=== PATIENT | male | born 1945 | race Caucasian/White ===

== ENCOUNTER → 2018-01-13 07:25 | Outpatient (CLI) | payer MEDICARE, OTHER, SELFPAY ==
[2018-01-13 09:13] LABS: Anion Gap 8 (5-15); BUN 13 mg/dL (7-18); BUN/Creat Ratio 16.2 RATIO (10-20); Calcium,Total 8.9 mg/dL (8.5-10.1); Chloride 102 mmol/L (98-107); Cholesterol 180 mg/dL (200); EST Glomerular Filtration Rate 100 mL/min (>60); Est Glom Filt Rate - Afr Amer 121 mL/min (>60); Glucose 95 mg/dL (74-106); High Density Lipoprotein 46 mg/dL; PSA,Total - Annual Screen 1.16 ng/mL (0.00-4.00); Potassium 3.7 mmol/L (3.5-5.1); Sodium Level 139 mmol/L (136-145); Triglycerides 123 mg/dL; Very Low Density Lipoprotein 25 mg/dL (5-40)
== END ==
DX: I10 Essential (primary) hypertension (principal); N40.0 Benign prostatic hyperplasia without lower urinary tract symptoms; E78.5 Hyperlipidemia, unspecified
CPT/HCPCS: 36415; 80048; 80061; 84153; G0103

== ENCOUNTER → 2019-01-25 07:13 | Outpatient (CLI) | payer MEDICARE, OTHER, SELFPAY ==
[2019-01-25 07:42] LABS: Hematocrit 42.4 % (40-54); Hemoglobin 14.6 g/dL (13.0-16.5); Mean Corp Hgb Conc 34.4 g/dL (32-36); Mean Corpuscular Hgb 31.7 pg (27.0-32.0); Mean Corpuscular Volume 92.2 fL (80-94); Platelet Count 286 K/mm3 (150-450); RBC Distribution Width CV 12.3 % (11.6-14.6); RBC Distribution Width SD 41.6 fl (35.1-43.9); White Blood Count 5.9 K/mm3 (4.4-11.0)
[2019-01-25 08:06] LABS: Anion Gap 8 (5-15); BUN 9 mg/dL (7-18); BUN/Creat Ratio 9.8 RATIO (10-20); Calcium,Total 9.1 mg/dL (8.5-10.1); Chloride 106 mmol/L (98-107); Creatinine, Serum 0.92 mg/dL (0.70-1.30); EST Glomerular Filtration Rate 85 mL/min (>60); Est Glom Filt Rate - Afr Amer 103 mL/min (>60); Glucose 98 mg/dL (74-106); PSA,Total - Annual Screen 1.54 ng/mL (0.00-4.00); Potassium 3.6 mmol/L (3.5-5.1); Sodium Level 142 mmol/L (136-145)
== END ==
DX: I10 Essential (primary) hypertension (principal); N40.1 Benign prostatic hyperplasia with lower urinary tract symptoms
CPT/HCPCS: 36415; 80048; 84153; 85027; G0103

== ENCOUNTER → 2020-01-19 08:01 | Outpatient (CLI) | payer MEDICARE, OTHER, SELFPAY ==
[2020-01-19 09:02] LABS: Anion Gap 5 (5-15); BUN 10 mg/dL (7-18); BUN/Creat Ratio 11.1 RATIO (10-20); Chloride 102 mmol/L (98-107); EST Glomerular Filtration Rate 87 mL/min (>60); Est Glom Filt Rate - Afr Amer 105 mL/min (>60); Glucose 106 mg/dL (74-106); PSA,Total- Diagnostic 2.05 ng/mL (0.0-4.0); Potassium 3.4 mmol/L (3.5-5.1); Sodium Level 136 mmol/L (136-145)
== END ==
DX: I10 Essential (primary) hypertension (principal); N40.1 Benign prostatic hyperplasia with lower urinary tract symptoms
CPT/HCPCS: 36415; 80048; 84153

== ENCOUNTER → 2021-01-31 07:55 | Outpatient (CLI) | payer MEDICARE, OTHER, SELFPAY ==
[2021-01-31 09:58] LABS: Anion Gap 7 (5-15); BUN 13 mg/dL (7-18); BUN/Creat Ratio 14.5 RATIO (10-20); Calcium,Total 9.1 mg/dL (8.5-10.1); Chloride 102 mmol/L (98-107); Cholesterol 189 mg/dL (200); Creatinine, Serum 0.89 mg/dL (0.70-1.30); EST Glomerular Filtration Rate 88 mL/min (>60); Est Glom Filt Rate - Afr Amer 106 mL/min (>60); Glucose 102 mg/dL (74-106); High Density Lipoprotein 56 mg/dL; PSA,Total - Annual Screen 1.65 ng/mL (0.00-4.00); Potassium 3.3 mmol/L (3.5-5.1); Sodium Level 137 mmol/L (136-145); Triglycerides 103 mg/dL; Very Low Density Lipoprotein 21 mg/dL (5-40)
== END ==
DX: I10 Essential (primary) hypertension (principal); N40.1 Benign prostatic hyperplasia with lower urinary tract symptoms; E78.5 Hyperlipidemia, unspecified
CPT/HCPCS: 36415; 80048; 80061; 84153; G0103

== ENCOUNTER 2021-08-28 13:23 | Emergency (ER) | payer OTHER, SELFPAY ==
[2021-08-28 13:25] VITALS: BP 149/92; PULSE 89; RESP 16; TEMP 36.7; O2SAT 95; BMI 24.3
[2021-08-28 14:47] LABS: Bacteria 0 SEEN /hpf (None Seen); Mucous, Urine 0 SEEN /hpf (<or=2+); Red Blood Cells-Urine 0 SEEN /hpf (0-5); Squamous Epithelial Cells - UA 0 SEEN /hpf (0-5); White Blood Cells 0 SEEN /hpf (0-5)
[2021-08-28 14:54] LABS: Color, Urine Yellow (Yellow); Glucose, Dipstick Normal (Normal); Ketone-Dipstick Negative (Negative); Leukocyte Esterase-Dipstick Negative /ul (Negative); Nitrite-Dipstick Negative (Negative); Occult Blood-Urine Negative /ul (Negative); Protein-Dipstick Negative (Negative); Specific Gravity, Urine 1.015 (1.002-1.030); Urine Bilirubin Dipstick Negative (Negative); Urine Clarity Clear (Clear); Urine Urobilinogen Normal (Normal)
--- NOTE | 2021-08-28 14:59 | EX.ED.DYSGE1 ---
HPI History of Present Illness Chief Complaint: Abd Pain Informant: patient Onset/Context/Timing Onset: Yesterday Context: Gradual Onset Timing: Continuous Quality: Pressure Location: Suprapubic Worsened by: Nothing Relieved by: Nothing Narrative Narrative: Patient presents with urinary retention and lower abdominal pain that has been getting worse since last evening. Patient states it is gradually gotten worse. Patient describes his pain as a pressure. Patient states it is over the suprapubic area. Patient states he was able to dribble small amounts of urine but has not been unable to completely urinate. Patient admits to some mild pain with urination. Patient denies any fevers or chills. Patient denies any nausea or vomiting. [facility] Medical History Arthritis Hemorrhoids HTN (hypertension) Incontinence Home Medications atenolol 100 mg tablet ea PO 08/28/21 [History Last Taken Unknown] felodipine 10 mg tablet,extended release 24 hr ea PO 08/28/21 [History Last Taken Unknown] hydrochlorothiazide 25 mg tablet tablet PO 08/28/21 [History Last Taken Unknown] potassium chloride 20 mEq tablet,extended release(part/cryst) ea PO 08/28/21 [History Last Taken Unknown] Allergy/AdvReac Type Severity Reaction Status Date / Time lisinopril Allergy unknown Verified 08/28/21 13:25 losartan Allergy unknown Verified 08/28/21 13:25 Surgical History History of partial knee replacement Social History Smoking Status: Never smoker alcohol intake: current alcohol intake frequency: 0-2 drinks per day Alcohol type: beer ROS ROS ED Constitutional Constitutional ED: Denies chills or fever(s) Eyes Eyes: Denies blurry vision or change in vision ENT ENT ED: Denies rhinorrhea or sore throat Cardiovascular Cardiovascular: Denies chest pain or palpitations Respiratory/Chest Respiratory/Chest: Denies cough or dyspnea Gastrointestinal Gastrointestinal: Denies nausea or vomiting Genitourinary Genitourinary ED: Reports dysuria; Denies hematuria Musculoskeletal Musculoskeletal: Denies back pain or neck pain Integumentary Denies abscess or rash Neurologic Neurologic: Denies headache(s) or weakness Allergic/Immunologic Allergic/Immunologic ED: Denies mouth swelling or urticaria EXAM Physical Exam Const Vital Signs: 08/28/21 13:25 Temperature 98.1 F Temperature Source Temporal Pulse Rate 89 Respiratory Rate 16 Blood Pressure 149/92 H Blood Pressure Mean 111 Pulse Ox 95 Oxygen Delivery Method Room Air Positive well nourished and well developed General Appearance ED: well developed and NAD HEENT Reports moist mucous membranes Neck supple and no JVD Resp normal respiratory effort and clear to auscultation bilaterally Cardio regular rate and regular rhythm GI normal to inspection, nondistended, normoactive bowel sounds and non-tender Palpation: soft Neuro oriented x3, CN's II-XII intact bilaterally and no sensory deficits noted Sensorium / Orientation: alert Motor Exam: strength 5/5 throughout Psych mental status grossly normal MDM MDM MDM Narrative Medical decision making narrative: Lemus catheter was placed. There was over 1600 cc of urine returned. Patient feels better after this. Urinalysis does not show any evidence of urinary tract infection or hematuria. Patient was given a leg bag. Patient was given referral for follow-up care in 3 to 5 days. Patient was also given a referral for urology. Patient was instructed return if worse in any way. Patient understood and was agreeable with the plan. All questions were answered. Lab Data Attestation: I reviewed the patient's lab results. Labs: Laboratory Results - last 24 hr 08/28/21 14:35 Urine Color Yellow Urine Clarity Clear Urine pH 7.0 Ur Specific [place] 1.015 Urine Protein Negative Urine Glucose (UA) Normal Urine Ketones Negative Urine Occult Blood Negative Urine Nitrite Negative Urine Bilirubin Negative Urine Urobilinogen Normal Ur Leukocyte Esterase Negative Discharge Plan Triage Chief Complaint: Abd Pain ED Provider: Florentino Rodriguez Dx/Rx/DC Orders Clinical Impression: Acute urinary retention, HTN (hypertension) Instructions: ED Lemus Catheter, Care, ED Urinary Retention, Male Prescriptions: No Action atenolol 100 mg tablet PO RF: 0 felodipine 10 mg tablet extended release 24 hr PO RF: 0 hydrochlorothiazide 25 mg tablet PO RF: 0 potassium chloride 20 mEq tablet,ER particles/crystals PO RF: 0 [facility] Referrals: Florentino Celeste MD [STAFF PHYSICIAN] - 3-5 Days [facility] [Primary Care Provider] - Disposition Disposition: Home, Self Care
[2021-08-28 16:01] VITALS: PULSE 87; RESP 17; O2SAT 98
== END 2021-08-28 16:02 | disposition home or self-care (01) ==
PROVIDERS: Emergency Provider Emergency Medicine; Visit Provider Emergency Medicine
DX: R33.9 Retention of urine, unspecified (principal); R10.30 Lower abdominal pain, unspecified; R30.0 Dysuria; I10 Essential (primary) hypertension; M19.90 Unspecified osteoarthritis, unspecified site; Z79.899 Other long term (current) drug therapy
CPT/HCPCS: 51702; 81001; 99284; A4216

== ENCOUNTER 2021-08-28 15:24 | Outpatient (CLI) | payer OTHER, SELFPAY | END 2021-08-28 23:59 | disposition home or self-care (01) | LOC: LABSPEC 15:25 | PROVIDERS: Referring Provider Physician Assistant Surgical; Visit Provider Physician Assistant Surgical | DX: R30.9 Painful micturition, unspecified (principal) | CPT/HCPCS: 87086 ==

== ENCOUNTER 2021-09-09 04:14 | Emergency (ER) | payer OTHER, SELFPAY ==
[2021-09-09 04:15] VITALS: PULSE 96; RESP 18; TEMP 36.6; O2SAT 97; BMI 24.6
--- NOTE | 2021-09-09 04:26 | EDS_ITS ---
HPI History of Present Illness Chief Complaint: Complaint Detail of Chief Complaint: Urinary retention Informant: patient Pain Onset: Today Context: Gradual Onset Timing: Continuous Current Severity: Severe Maximum Severity: Severe Narrative Narrative: Patient presenting with acute urinary retention. He had this about a week ago, had a catheter placed, saw urology yesterday, did a scope in the office he was diagnosed with an enlarged prostate and is scheduled for a prostatectomy September 25, catheter was removed after he was on medications for a week, he was able to urinate after this in the office, so he was discharged home without it. He woke up in the middle of the night, he can only urinate a very little bit, no hematuria, but he feels the growing need to urinate and is unable to. No back pain, nausea, vomiting, fevers. PFSH PFSH Medical History Arthritis Hemorrhoids HTN (hypertension) Incontinence Home Medications atenolol 100 mg tablet ea PO 08/28/21 [History Last Taken Unknown] felodipine 10 mg tablet,extended release 24 hr ea PO 08/28/21 [History Last Taken Unknown] hydrochlorothiazide 25 mg tablet tablet PO 08/28/21 [History Last Taken Unknown] potassium chloride 20 mEq tablet,extended release(part/cryst) ea PO 08/28/21 [History Last Taken Unknown] Allergy/AdvReac Type Severity Reaction Status Date / Time lisinopril Allergy unknown Verified 08/28/21 13:25 losartan Allergy unknown Verified 08/28/21 13:25 Surgical History History of partial knee replacement Social History Smoking Status: Never smoker alcohol intake: current alcohol intake frequency: 0-2 drinks per day Alcohol type: beer ROS ROS ED Constitutional Constitutional ED: Denies chills or fever(s) Eyes Eyes: Denies change in vision or diplopia ENT ENT ED: Denies rhinorrhea or sore throat Cardiovascular Cardiovascular: Denies chest pain or palpitations Respiratory/Chest Respiratory/Chest: Denies cough or dyspnea Gastrointestinal Gastrointestinal: Reports as per HPI and abdominal pain; Denies diarrhea, nausea or vomiting Genitourinary Genitourinary ED: Reports difficulty urinating; Denies dysuria or hematuria Musculoskeletal Musculoskeletal: Denies back pain or neck pain Integumentary Denies abscess or rash Neurologic Neurologic: Denies headache(s), paresthesias or weakness Psychiatric Psychiatric: Denies anxiety or suicidal thoughts EXAM Physical Exam Const Vital Signs: 09/09/21 04:15 Temperature 97.9 F Temperature Source Temporal Pulse Rate 96 Respiratory Rate 18 Pulse Ox 97 Positive well nourished and well developed General Appearance ED: well developed and NAD HEENT Reports moist mucous membranes normocephalic and atraumatic Eyes PERRL and EOMs intact bilaterally Neck full ROM and supple Resp normal respiratory effort and clear to auscultation bilaterally Cardio regular rate, regular rhythm and no murmurs GI GI Narrative: Suprapubic distention and tenderness Auscultation: normoactive bowel sounds Palpation: soft Back/Spine no CVA tenderness General Back: other FROM Extremity normal to inspection General Extremety ED: Negative for edema, pulses abnormal or tenderness General Extremity: Negative for edema or pulses abnormal Neuro oriented x3, CN's II-XII intact bilaterally and no sensory deficits noted Sensorium / Orientation: awake and alert Motor Exam: strength 5/5 throughout Skin no rashes or lesions noted and no wounds MDM MDM MDM Narrative Medical decision making narrative: Nursing placed a Lemus catheter, he emptied over 1.5 liters of yellow nonbloody transparent urine and he felt much better. Discharged with a leg bag and advised to continue his prescribed medications and follow-up with urology he is comfortable with that plan. Discharge Plan Triage Chief Complaint: Complaint ED Provider: Theron Kim Dx/Rx/DC Orders Clinical Impression: Acute urinary retention, Enlarged prostate Instructions: ED Lemus Catheter, Care, ED Urinary Retention, Male Prescriptions: No Action atenolol 100 mg tablet PO RF: 0 felodipine 10 mg tablet extended release 24 hr PO RF: 0 hydrochlorothiazide 25 mg tablet PO RF: 0 potassium chloride 20 mEq tablet,ER particles/crystals PO RF: 0 Primary Care Provider: [facility],[place] Referrals: Marvin Ribera MD [STAFF PHYSICIAN] - (Call for appointment/follow-up information) [facility],[place] [Primary Care Provider] - Disposition Disposition: Home, Self Care
[2021-09-09 04:58] VITALS: BP 128/83; PULSE 77; RESP 15; O2SAT 96
== END 2021-09-09 05:10 | disposition home or self-care (01) ==
LOC: ED 04:40
PROVIDERS: Emergency Provider Emergency Medicine; Visit Provider Emergency Medicine
DX: N40.1 Benign prostatic hyperplasia with lower urinary tract symptoms (principal); R33.8 Other retention of urine; I10 Essential (primary) hypertension; M19.90 Unspecified osteoarthritis, unspecified site; Z79.899 Other long term (current) drug therapy
CPT/HCPCS: 51702; 99283

== ENCOUNTER 2021-09-25 07:33 | Observation (INO) | payer MEDICARE, OTHER, SELFPAY ==
--- NOTE | 2021-09-23 13:51 | EKG12_ITS ---
Test Reason : PREOP Blood Pressure : / mmHG Vent. Rate : 068 BPM Atrial Rate : 068 BPM P-R Int : 212 ms QRS Dur : 092 ms QT Int : 416 ms P-R-T Axes : 038 -02 003 degrees QTc Int : 442 ms Sinus rhythm with sinus arrhythmia with 1st degree A-V block Otherwise normal ECG Confirmed by SHWETHA RODRIGUEZ, DIANA ([id number]), news videotape editor ELTON MORRIS ([id number]) on 09/24/2021 8:43:12 AM Referred By: Marvin Ribera Confirmed By:DIANA TADEO MD
[2021-09-23 14:59] LABS: Hematocrit 39.7 % (40-54); Mean Corp Hgb Conc 32.7 g/dL (32-36); Mean Corpuscular Hgb 31.2 pg (27.0-32.0); Mean Corpuscular Volume 95.2 fL (80-94); Mean Platelet Vol. 9.4 fl (6.2-12.0); Platelet Count 298 K/mm3 (150-450); RBC Distribution Width CV 12.1 % (11.6-14.6); RBC Distribution Width SD 42.3 fl (35.1-43.9); Red Blood Count 4.17 M/mm3 (4.6-6.2); White Blood Count 5.8 K/mm3 (4.4-11.0)
[2021-09-23 15:08] LABS: Prothrombin Time (Protime)PT. 13.2 SECONDS (11.7-14.9)
[2021-09-23 15:24] LABS: AST(SGOT) 14 U/L (15-37); Alanine Aminotransfer ALT/SGPT 22 U/L (16-61); Albumin, Serum 3.7 g/dL (3.2-5.0); Alkaline Phosphatase 79 U/L (45-117); Anion Gap 8 (5-15); BUN 20 mg/dL (7-18); BUN/Creat Ratio 20.3 RATIO (10-20); Bilirubin, Direct 0.17 mg/dL (0.00-0.30); Calcium,Total 9.3 mg/dL (8.5-10.1); Chloride 101 mmol/L (98-107); Creatinine, Serum 0.98 mg/dL (0.70-1.30); EST Glomerular Filtration Rate 78 mL/min (>60); Est Glom Filt Rate - Afr Amer 95 mL/min (>60); Globulin 3.7 g/dL (2.2-4.2); Glucose 114 mg/dL (74-106); Potassium 3.4 mmol/L (3.5-5.1); Protein, Total 7.4 g/dL (6.4-8.2); Sodium Level 136 mmol/L (136-145)
[2021-09-25] VITALS (15 sets, daily range): BP systolic 72–128; BP diastolic 48–78; PULSE 53–69; RESP 14–20; TEMP 35.6–36.7; O2SAT 88–100; BMI 24.5; BMI 28.1
--- NOTE | 2021-09-25 | PROS_PTH ---
PATIENT: HONG ANDERS LOC: [facility] U#:[id number] AGE/SX: 76/M ROOM: OH315 RE09/25/[address]: Dr. Marvin Ribera MD : 1945 BED: 1 DIS: 09/26/2021 SPEC #: [id number] RECD: 09/25/21 13:19 STATUS: LONNY BOTELLO #: [id number] DEEJAY: 09/25/21 00:[address]: Marvin Ribera DEPT: SURGICAL PATHOLOGY RECD BY: Juan Carlos Bishop ENTERED: 09/28/21 08:16 SP TYPE: TURP OT DR: [facility] Tissues: Prostate, NOS Procedures: Surgery Specimen Level IV HEADER OPERATION: Cystoscopy, transurethral resection of prostate PRE-OP DIAGNOSIS: BPH TISSUE SUBMITTED: Prostate tissue MICROSCOPIC DIAGNOSIS Prostate tissue, transurethral resection: Benign prostatic hyperplasia, glandular and stromal type. Focal chronic inflammation. SJ:carlee 09/29/2021 MICROSCOPIC DESCRIPTION Slides are reviewed. GROSS DESCRIPTION Received is one container labeled with the patient's name and designated prostate tissue. The specimen consists of multiple irregular fragments of pink-valentine, rubbery, soft tissue that in aggregate weigh 35.9 gm and measure in aggregate 8 x 8 x 3 cm. Multiple Wire Sawyer tissue is submitted in ten cassettes. / SJ:carlee 09/28/2021 TC:5 CPT: 57494
[2021-09-25] MEDS: Lactated Ringers 1,000 ML 15 ML IV (06:27)
[2021-09-25] MEDS: Cefazolin 2 GM in 0.9% Normal Saline 100 ML IV (07:24)
--- NOTE | 2021-09-25 07:35 | PCM.HP.STD ---
HPI - General HPI Narrative HONG ANDERS, is a 76 M who presents for a Turp for retention of urine. [facility] Medical History (Updated 09/18/21 @ 11:23 by Kristal Menjivar) Alcohol use Arthritis Easy bruising Enlarged prostate Hemorrhoids History of IBS History of stress test HTN (hypertension) Incontinence Leg cramps Non-smoker Wears glasses Wears hearing aid in both ears Wears partial dentures Home Medications atenolol 100 mg tablet 100 mg PO DAILY 08/28/21 [History Last Taken 09/25/21 06:00] felodipine 10 mg tablet,extended release 24 hr 10 mg PO DAILY 08/28/21 [History Last Taken 09/25/21 06:00] hydrochlorothiazide 25 mg tablet 25 mg PO DAILY 08/28/21 [History Last Taken Unknown] potassium chloride 20 mEq tablet,extended release(part/cryst) 20 meq PO TID 08/28/21 [History Last Taken Unknown] turmeric 400 mg PO QODAY 09/18/21 [History Last Taken Unknown] ciprofloxacin HCl [Cipro] 500 mg PO BID #10 tab 09/25/21 [Rx Last Taken Unknown] Allergy/AdvReac Type Severity Reaction Status Date / Time lisinopril Allergy unknown Verified 09/25/21 06:16 losartan Allergy unknown Verified 09/25/21 06:16 Family History (Updated 09/17/21 @ 15:24 by Saira Taylor) Mother Arthritis Hypertension Father Stomach cancer Brother Heart disease Surgical History (Updated 09/18/21 @ 11:14 by Kristal Menjivar) History of partial knee replacement History of tonsillectomy and adenoidectomy Hx of bilateral cataract extraction Social History (Updated 09/17/21 @ 15:25 by Saira Taylor) Smoking Status: Never smoker alcohol intake: current alcohol intake frequency: 0-2 drinks per day Alcohol type: beer substance use type: does not use what type of physical activity do you participate in: walking frequency: 3-4 times per week duration: 15-30 minutes/day Vital Signs Vital Signs Vital Signs: 09/25/21 06:12 Temperature 97.8 F Temperature Source Temporal Pulse Rate 61 Respiratory Rate 16 Respiratory Pattern Normal Blood Pressure 112/74 Blood Pressure Mean 86 Blood Pressure Source Monitor Blood Pressure Position Semi-Fowlers Blood Pressure Location Left Arm Pulse Ox 97 Oxygen Delivery Method Room Air Weight Weight: 75.3 kg Body Mass Index (BMI) 24.5 Results Lab / Micro Data Result Diagrams: 09/23/21 14:01 09/23/21 14:01
[2021-09-25] MEDS: Lubricating Jelly 60 GM Tube 30 GM (07:45)
--- NOTE | 2021-09-25 09:16 | DCINST_ITS ---
Discharge Instructions Diet Discharge Diet: No restrictions Activity Discharge Activity: Return to Normal Activity and May Not Drive (while taking narcotic pain medications.) Dressing / Incision Call your doctor if you observe: Fever of 101 or Higher Follow Up Care Please Follow Up With: Marvin Ribera MD When: Call [phone] for an appointment Test Results: Test results from this visit will be discussed in further detail at your follow-up appointment, if applicable. Discharge Plan Admission Primary Reason for Your Visit: TURP Attending Provider: Marvin Ribera Primary Care Provider: [facility],[place] Instructions Patient Instructions: TUR Home Recovery Discharge Orders/Prescriptions Prescriptions: New ciprofloxacin HCl [Cipro] 500 mg tablet 500 mg PO BID Qty: 10 RF: 0 Continued atenolol 100 mg tablet 100 mg PO DAILY RF: 0 felodipine 10 mg tablet extended release 24 hr 10 mg PO DAILY RF: 0 hydrochlorothiazide 25 mg tablet 25 mg PO DAILY RF: 0 potassium chloride 20 mEq tablet,ER particles/crystals 20 meq PO TID RF: 0 turmeric 400 mg Capsule 400 mg PO QODAY RF: 0 Discontinued tamsulosin 0.4 mg capsule 0.4 mg PO DAILY RF: 0 dutasteride 0.5 mg capsule 0.5 mg PO DAILY RF: 0 Referrals / Follow Up: Marvin Ribera MD [STAFF PHYSICIAN] - [facility],[place] [Primary Care Provider] - Disposition Disposition (needs filled in before D/C Order can be placed): Home, Self Care
--- NOTE | 2021-09-25 09:17 | OP.PCM_ITS ---
Report of Operation Date of Procedure: 09/25/21 Pre-Operative Diagnosis: bph with retention of urine Post-Operative Diagnosis: same Surgery/Procedure Performed:: TURP Description of Surgical Findings:: In the preoperative setting I discussed with the patient how the surgery would be done with expect afterwards. We discussed how a prostate resection is done and we discussed the risk of the surgery including, bleeding, infection, retrograde ejaculation, changes with ejaculation or intercourse,. We discussed the possibility that the resection of the prostate may not alleviate his urinary symptoms. We discussed the small risk of developing scar tissue along the urethral channel and strictures. We also discussed the chance of the prostate could grow back and he may need further surgery or treatment in the future for prostate problems. Patient was taken back to the operating room, timeout procedure was performed, he was identified and marked and placed on the operating room table. He underwent general anesthesia. He was placed in dorsolithotomy position. Penis and testicles were prepped and draped in usual sterile fashion. Went into the bladder using the visual obturator with a resectoscope. Once inside the bladder identified the right and left ureteral orifice. I then identified the prostate and the anatomy of the prostate. I marked out the area of the sphincter and the verumontanum was identified. I then proceeded with the prostate resection first resected the median lobe. And then resected the right lobe of the prostate. Then to resect the left lobe of the prostate. I then resected the apical tissue of the prostate. This was a complete resection of all obstructive tissue to improve voiding and relieve obstruction. I then made sure that there was no injury to the sphincter or the verumontanum was still intact. At the end of the resection all the chips were Ellik out of the bladder. I then identified the left and right ureteral orifice and these were confirmed to be in good position and effluxing and not injured. The resectoscope was removed, a 22 [place] catheter was placed into the bladder on continuous irrigation. And the urine was fairly light pink color and draining normally. He was taken back to the PACU in good condition. CPT 20738 Surgeon: parker Type of Anesthesia: General Admit VTE Documentation VTE Present on Admission: No VTE Mechan Device Prophylaxis: SCD's VTE Pharm Prophylaxis ordered?: No
[2021-09-25] MEDS: Ciprofloxacin 500 MG Tablet PO ×2 (12:33→21:30)
[2021-09-25] MEDS: hydroCHLOROthiazide 25 MG Tablet PO (12:34)
[2021-09-25] MEDS: Ibuprofen 600 MG Tablet PO (12:34)
[2021-09-25] MEDS: Potassium Chloride Oral Tablet 20 MEQ PO ×2 (12:35→18:28)
--- NOTE | 2021-09-25 12:39 | NURSING ---
Pt felt urge to have a BM, this pt irrigated bladder and obtained 1 mod sized drk red clot. About 10 min ago and now pt states he feels much better. Pt is eating lunch.
--- NOTE | 2021-09-25 15:30 | NURSING ---
Dangled on the edge of bed for several minutes. Then assisted to bathroom. Pt had a small BM. Then assisted into chair. Sitting up in chair at this time.
--- NOTE | 2021-09-25 18:46 | NURSING ---
Continued to sit in chair, watching TV. Denies needs. CBI running slow and maintained.
[2021-09-26 03:59] VITALS: BP 96/51; PULSE 60; RESP 16; TEMP 36.9; O2SAT 97
[2021-09-26 08:16] VITALS: BP 131/82; PULSE 71; RESP 18; TEMP 36.6; O2SAT 98
[2021-09-26] MEDS: Potassium Chloride Oral Tablet 20 MEQ PO ×2 (09:36→13:10)
[2021-09-26] MEDS: Ciprofloxacin 500 MG Tablet PO (09:36)
[2021-09-26] MEDS: Atenolol 100 MG Tablet PO (09:37)
[2021-09-26] MEDS: hydroCHLOROthiazide 25 MG Tablet PO (09:37)
[2021-09-26] MEDS: amLODIPine 10 MG Tablet PO (09:37)
[2021-09-26 13:12] VITALS: BP 124/79; PULSE 56; RESP 16; TEMP 36.5; O2SAT 98
--- NOTE | 2021-09-26 13:20 | CASEMGMT ---
MARY PALACIOS in to complete CONRAD form. MARY PALACIOS explained CONRAD form to patient, patient voiced understanding. Patient signed CONRAD form and filed in chart. Patient provided copy of signed CONRAD form. Patient had no further questions or concerns at this time
[2021-09-26 15:37] VITALS: BP 124/79; PULSE 56; RESP 16; TEMP 36.5; O2SAT 98
== END 2021-09-26 16:32 | disposition home or self-care (01) ==
LOC: SDC 09:54 → MS3 09:54
PROVIDERS: Anesthesiology; Admitting Provider Urology; Referring Provider Urology; Visit Provider Urology
PROC: (CPT 52601; principal; 2021-09-25 07:20)
DX: N40.1 Benign prostatic hyperplasia with lower urinary tract symptoms (principal); R33.9 Retention of urine, unspecified; I10 Essential (primary) hypertension; M19.90 Unspecified osteoarthritis, unspecified site; Z79.899 Other long term (current) drug therapy; R32 Unspecified urinary incontinence; Z87.19 Personal history of other diseases of the digestive system; I44.0 Atrioventricular block, first degree; R30.0 Dysuria; Z86.2 Personal history of diseases of the blood and blood-forming organs and certain disorders involving the immune mechanism
CPT/HCPCS: 52601; 00914; 36415; 80048; 80076; 85027; 85610; 85730; 88305; 93005; 99218; J7120; G0378; J2405

== ENCOUNTER 2021-10-06 16:31 | Outpatient (CLI) | payer MEDICARE, OTHER, SELFPAY | END 2021-10-06 23:59 | disposition home or self-care (01) | LOC: LABSPEC 16:32 | PROVIDERS: Referring Provider Urology; Visit Provider Urology | DX: R31.9 Hematuria, unspecified (principal) | CPT/HCPCS: 87077; 87086; 87088; 87186 ==

== ENCOUNTER → 2022-08-09 | Outpatient (CLI) | payer MEDICARE, OTHER, SELFPAY | END | disposition home or self-care (01) | LOC: LAB 16:51 | PROVIDERS: Referring Provider Urology; Visit Provider Urology | DX: R33.8 Other retention of urine (principal) | CPT/HCPCS: 87086; 87088; 87186 ==

== ENCOUNTER → 2022-09-01 | Outpatient (CLI) | payer MEDICARE, OTHER, SELFPAY | END | disposition home or self-care (01) | LOC: LABSPEC 10:27 | PROVIDERS: Visit Provider Urology | DX: R31.9 Hematuria, unspecified (principal) | CPT/HCPCS: 87077; 87086; 87088; 87186 ==

== ENCOUNTER → 2022-10-05 | Outpatient (CLI) | payer MEDICARE, OTHER, SELFPAY ==
[2022-10-05 11:17] LABS: Absolute Lymphocyte Count 1.66 X10^3/uL (0.83-4.51); Absolute Neutrophil Count 3.2 X10^3/uL (2.0-7.7); Basophil# 0.08 X10^3/uL; Basophil% 1.3 % (0-1); Eosinophil# 0.29 X10^3/uL; Eosinophils% 4.8 % (0-5); Hematocrit 44.1 % (40-54); Hemoglobin 15.1 g/dL (13.0-16.5); Lymphocyte # 1.66 X10^3/ul (0.83-4.51); Lymphocyte % 27.6 % (19-41); Mean Corp Hgb Conc 34.2 g/dL (32-36); Mean Corpuscular Hgb 31.6 pg (27.0-32.0); Mean Corpuscular Volume 92.3 fL (80-94); Mean Platelet Vol. 9.3 fl (6.2-12.0); Monocyte# 0.78 X10^3/uL; NRBC Flagged by Analyzer 0 % (0-5); Neutrophil % 53.1 % (47-70); Platelet Count 297 K/mm3 (150-450); RBC Distribution Width CV 12.5 % (11.6-14.6); RBC Distribution Width SD 42.5 fl (35.1-43.9); Red Blood Count 4.78 M/mm3 (4.6-6.2)
[2022-10-05 11:41] LABS: Vitamin D,25 Hydroxy 36.8 ng/mL
[2022-10-05 12:54] LABS: AST(SGOT) 16 U/L (15-37); Alanine Aminotransfer ALT/SGPT 25 U/L (16-61); Albumin, Serum 3.8 g/dL (3.2-5.0); Alkaline Phosphatase 103 U/L (45-117); Anion Gap 6 (5-15); BUN 13 mg/dL (7-18); BUN/Creat Ratio 16.3 RATIO (10-20); Calcium,Total 9.2 mg/dL (8.5-10.1); Chloride 106 mmol/L (98-107); Cholesterol 165 mg/dL (200); EST Glomerular Filtration Rate 100 mL/min (>60); Est Glom Filt Rate - Afr Amer 121 mL/min (>60); Globulin 3.9 g/dL (2.2-4.2); Glucose 87 mg/dL (74-106); High Density Lipoprotein 59 mg/dL; Magnesium 2.5 mg/dL (1.6-2.6); PSA,Total - Annual Screen 0.91 ng/mL (0.00-4.00); Potassium 3.9 mmol/L (3.5-5.1); Protein, Total 7.7 g/dL (6.4-8.2); Sodium Level 137 mmol/L (136-145); Thyroid Stim Hormone (TSH) 1.25 uIU/mL (0.358-3.74); Triglycerides 68 mg/dL; Very Low Density Lipoprotein 14 mg/dL (5-40)
[2022-10-05 20:22] LABS: Hemoglobin A1c 5.7 % (3.8-5.6)
== END | disposition home or self-care (01) ==
LOC: LAB 09:58
PROVIDERS: Referring Provider Internal Medicine; Visit Provider Internal Medicine
DX: M19.90 Unspecified osteoarthritis, unspecified site (principal); I10 Essential (primary) hypertension; R32 Unspecified urinary incontinence; R73.9 Hyperglycemia, unspecified; Z13.220 Encounter for screening for lipoid disorders; E55.9 Vitamin D deficiency, unspecified; Z12.5 Encounter for screening for malignant neoplasm of prostate
CPT/HCPCS: 36415; 80053; 80061; 82306; 83036; 83735; 84153; 84443; 85025; G0103

== ENCOUNTER 2022-12-16 08:39 | Emergency (ER) | payer OTHER, SELFPAY ==
[2022-12-16 08:40] VITALS: BP 128/94; PULSE 70; RESP 16; TEMP 36.4; O2SAT 98; BMI 24.0
--- NOTE | 2022-12-16 09:01 | EDS_ITS ---
HPI History of Present Illness Chief Complaint: GI Bleed Detail of Chief Complaint: Bright red blood per rectum Informant: patient Onset/Context/Timing Onset: Today and Yesterday Context: Sudden Onset Timing: Intermittent Quality: Blood with bowel movement and noted small amount of blood lysate on underwe Current Severity: Moderate Maximum Severity: Moderate Worsened by: Bowel movement Relieved by: Not applicable Associated Symptoms Associated Symptoms: None Narrative Narrative: Patient is a 77-year-old male presents with bright red blood per rectum yesterday x1 and x2 today. He is noted with bowel movement and noted blood in his underwear after bowel movement. He denies orthostatic symptoms. He is not on an anticoagulant. He denies cardiac or respiratory symptoms. He has a remote history of hemorrhoids. He had a polypectomy performed by Dr. Ariel Horn 1 year ago. Prior similar symptoms: Yes (Hemorrhoids) Recent Illness/Hospitalization: [facility] Medical History Alcohol use Arthritis Easy bruising Enlarged prostate Hemorrhoids History of IBS History of stress test HTN (hypertension) Incontinence Leg cramps Non-smoker Wears glasses Wears hearing aid in both ears Wears partial dentures Home Medications atenolol 100 mg tablet 100 mg PO DAILY #90 tabs 10/18/22 [Rx Last Taken Unknown] felodipine 10 mg tablet,extended release 24 hr 10 mg PO DAILY #90 tabs 10/18/22 [Rx Last Taken Unknown] potassium chloride 20 mEq tablet,extended release(part/cryst) 20 meq PO BID #180 tabs 10/18/22 [Rx Last Taken Unknown] Allergy/AdvReac Type Severity Reaction Status Date / Time lisinopril Allergy unknown Verified 12/16/22 08:40 losartan Allergy unknown Verified 12/16/22 08:40 Family History Mother Arthritis Hypertension Father Stomach cancer Brother Heart disease Surgical History History of partial knee replacement History of tonsillectomy and adenoidectomy History of transurethral resection of prostate Hx of bilateral cataract extraction Social History Smoking Status: Never smoker alcohol intake: current alcohol intake frequency: 0-2 drinks per day Alcohol type: beer substance use type: does not use what type of physical activity do you participate in: walking frequency: 3-4 times per week duration: 15-30 minutes/day ROS ROS ED Constitutional Constitutional ED: Denies chills, fever(s), subjective, sweats or weight loss Cardiovascular Cardiovascular: Denies chest pain or palpitations Respiratory/Chest Respiratory/Chest: Denies dyspnea or dyspnea on exertion Gastrointestinal Gastrointestinal: Reports other Details: Hematochezia ; Denies abdominal pain, constipation, diarrhea, melena, nausea or vomiting Genitourinary Genitourinary ED: Denies hematuria or urinary frequency Hematologic/Lymphatic Hematologic/Lymphatic: Reports systems reviewed and no addt'l complaints, except as documented EXAM Physical Exam Const Vital Signs: 12/16/22 08:40 Temperature 97.5 F L Temperature Source Temporal Pulse Rate 70 Respiratory Rate 16 Blood Pressure 128/94 H Blood Pressure Mean 105 Pulse Ox 98 Positive well nourished and well developed General Appearance ED: well developed and NAD; Negative for pallor HEENT Reports moist mucous membranes HEENT Narrative: Head is atraumatic normocephalic. Ears normal. Eyes PERRL and EOMs intact bilaterally General Eye ED: Negative for pale conjunctiva or scleral icterus Neck no lymphadenopathy, supple and no JVD Resp normal respiratory effort and clear to auscultation bilaterally Cardio regular rate, S2 normal heart sound and no murmurs GI normal to inspection, nondistended, normoactive bowel sounds, non-tender, non-distended and no masses; Negative for hepatosplenomegaly GI Narrative: And has brown stool. There is no obvious bright red blood noted at this time. Rectal Exam: normal sphincter tone and prostate normal Back/Spine no CVA tenderness Extremity normal to inspection Neuro oriented x3 and CN's II-XII intact bilaterally Sensorium / Orientation: alert Psych Mood & Affect: anxious Skin no rashes or lesions noted and no wounds General Skin Exam: Negative for jaundice or pallor MDM MDM MDM Narrative Medical decision making narrative: SPECT patient has hemorrhoidal bleeding. We will perform a anoscopy. Based on endoscopy findings patient had bright red blood per rectum due to hemorrhoids noted at 5:00 lithotomy position. Patient was informed of findings and discharged home with appropriate home-going instructions Procedures Other Procedures Procedure(s): Patient was in left lateral decubitus position. Evidence of prior hemorrhoids noted. Digital exam was unremarkable and documented under the GI section of the EMR. Anoscopy was performed. Stool is noted to be brown. There is no blood noted above the scope. At 5:00 there is a hemorrhoid which recently bled. There is a clot noted. There is no active bleeding. The anal/rectal mucosa appears normal. Discharge Plan Triage Chief Complaint: GI Bleed ED Provider: Bigg Johnson Dx/Rx/DC Orders Clinical Impression: Bleeding external hemorrhoids Instructions: ED Hemorrhoids Prescriptions: No Action atenolol 100 mg tablet 100 mg PO DAILY Qty: 90 3RF felodipine 10 mg tablet extended release 24 hr 10 mg PO DAILY Qty: 90 3RF potassium chloride 20 mEq tablet,ER particles/crystals 20 meq PO BID Qty: 180 3RF [facility] [facility] [facility] [Primary [facility] Provider] - As Needed Disposition Disposition: Home, Self Care
== END 2022-12-16 09:40 | disposition home or self-care (01) ==
PROVIDERS: Emergency Provider Emergency Medicine; Visit Provider Emergency Medicine
DX: K64.9 Unspecified hemorrhoids (principal); I10 Essential (primary) hypertension; Z79.899 Other long term (current) drug therapy
CPT/HCPCS: 46600; 99282

== ENCOUNTER → 2023-10-24 | Outpatient (CLI) | payer MEDICARE, OTHER, SELFPAY ==
[2023-10-24 10:08] LABS: Absolute Lymphocyte Count 1.46 X10^3/uL (0.83-4.51); Absolute Neutrophil Count 3.7 X10^3/uL (2.0-7.7); Basophil# 0.07 X10^3/uL; Basophil% 1.1 % (0-1); Eosinophil# 0.24 X10^3/uL; Eosinophils% 3.9 % (0-5); Lymphocyte # 1.46 X10^3/ul (0.83-4.51); Lymphocyte % 23.8 % (19-41); Mean Corp Hgb Conc 33.3 g/dL (32-36); Mean Corpuscular Hgb 31.2 pg (27.0-32.0); Mean Corpuscular Volume 93.6 fL (80-94); Mean Platelet Vol. 9.3 fl (6.2-12.0); Monocyte# 0.65 X10^3/uL; Monocyte% 10.6 % (0-10); NRBC Flagged by Analyzer 0 % (0-5); Neutrophil % 60.3 % (47-70); Platelet Count 299 K/mm3 (150-450); RBC Distribution Width SD 42.1 fl (35.1-43.9); Red Blood Count 4.81 M/mm3 (4.6-6.2); White Blood Count 6.1 K/mm3 (4.4-11.0)
[2023-10-24 10:28] LABS: Hemoglobin A1c 5.5 % (3.8-5.6)
[2023-10-24 10:34] LABS: Vitamin D,25 Hydroxy 22.6 ng/mL
[2023-10-24 10:42] LABS: ALB/GLOB Ratio 1.1 RATIO (0.9-2.4); AST(SGOT) 20 U/L (15-37); Alanine Aminotransfer ALT/SGPT 22 U/L (16-61); Albumin, Serum 4.1 g/dL (3.2-5.0); Alkaline Phosphatase 108 U/L (45-117); Anion Gap 4 (5-15); BUN 14 mg/dL (7-18); BUN/Creat Ratio 16.5 RATIO (10-20); Calcium,Total 9.3 mg/dL (8.5-10.1); Chloride 107 mmol/L (98-107); Cholesterol 165 mg/dL (200); Creatinine, Serum 0.85 mg/dL (0.70-1.30); EST Glomerular Filtration Rate 93 mL/min (>60); Est Glom Filt Rate - Afr Amer 112 mL/min (>60); Globulin 3.8 g/dL (2.2-4.2); Glucose 102 mg/dL (74-106); High Density Lipoprotein 58 mg/dL; PSA,Total - Annual Screen 1.28 ng/mL (0.00-4.00); Potassium 3.6 mmol/L (3.5-5.1); Protein, Total 7.9 g/dL (6.4-8.2); Sodium Level 139 mmol/L (136-145); Thyroid Stim Hormone (TSH) 1.34 uIU/mL (0.358-3.74); Triglycerides 80 mg/dL; Very Low Density Lipoprotein 16 mg/dL (5-40)
== END | disposition home or self-care (01) ==
LOC: LAB 09:18
PROVIDERS: Referring Provider Internal Medicine; Visit Provider Internal Medicine
DX: I10 Essential (primary) hypertension (principal); M19.90 Unspecified osteoarthritis, unspecified site; Z90.79 Acquired absence of other genital organ(s); E55.9 Vitamin D deficiency, unspecified; Z13.220 Encounter for screening for lipoid disorders; Z12.5 Encounter for screening for malignant neoplasm of prostate; R73.9 Hyperglycemia, unspecified
CPT/HCPCS: 36415; 80053; 80061; 82306; 83036; 84153; 84443; 85025; G0103

== ENCOUNTER → 2024-10-24 | Outpatient (CLI) | payer MEDICARE, OTHER, SELFPAY ==
[2024-10-24 10:30] LABS: Absolute Neutrophil Count 3.2 X10^3/uL (2.0-7.7); Basophil# 0.07 X10^3/uL; Basophil% 1.2 % (0-1); Eosinophil# 0.25 X10^3/uL; Eosinophils% 4.3 % (0-5); Hematocrit 44.6 % (40-54); Lymphocyte % 27.6 % (19-41); Mean Corp Hgb Conc 33.6 g/dL (32-36); Mean Corpuscular Hgb 30.9 pg (27.0-32.0); Mean Corpuscular Volume 91.8 fL (80-94); Mean Platelet Vol. 9.3 fl (6.2-12.0); Monocyte# 0.66 X10^3/uL; Monocyte% 11.4 % (0-10); NRBC Flagged by Analyzer 0 % (0-5); Neutrophil # 3.21 X10^3/uL (2.7-7.7); Neutrophil % 55.3 % (47-70); Platelet Count 283 K/mm3 (150-450); RBC Distribution Width CV 12.5 % (11.6-14.6); RBC Distribution Width SD 42.3 fl (35.1-43.9); Red Blood Count 4.86 M/mm3 (4.6-6.2); White Blood Count 5.8 K/mm3 (4.4-11.0)
[2024-10-24 11:55] LABS: ALB/GLOB Ratio 1.4 RATIO (0.9-2.4); AST(SGOT) 21 U/L (<=37); Alanine Aminotransfer ALT/SGPT 18 U/L (<=46); Albumin, Serum 4.6 g/dL (3.4-4.8); Alkaline Phosphatase 96 U/L (40-129); Anion Gap 13 (5-15); BUN 12 mg/dL (4-19); BUN/Creat Ratio 14.3 RATIO (10-20); Calcium,Total 9.6 mg/dL (7.6-11.0); Chloride 101 mmol/L (98-108); Cholesterol 176 mg/dL (<=200); Creatinine, Serum 0.86 mg/dL (0.70-1.20); EST Glomerular Filtration Rate 87 (>60); Globulin 3.3 g/dL (2.2-4.2); Glucose 124 mg/dL (70-99); High Density Lipoprotein 59 mg/dL; Low Density Lipoprotein Calc. 104 mg/dL; Magnesium 2.3 mg/dL (1.5-2.2); Potassium 3.9 mmol/L (3.3-5.1); Protein, Total 7.9 g/dL (5.9-8.4); Sodium Level 137 mmol/L (133-145); Total Bilirubin 0.59 mg/dL (0.00-1.30); Triglycerides 63 mg/dL; Very Low Density Lipoprotein 13 mg/dL (5-40); Vitamin B12 239 pg/mL (180-914); Vitamin D,25 Hydroxy 34.8 ng/mL (30-100); cholesterol:hdl ratio screen 2.97
--- OUTSIDE RECORDS SUMMARY | 2024-10-24 18:44 | XMS RPT_ITS | CCD ---
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 Laurie Plummer Attending Provider [facility] Provider [facility] Dr. Laurie Plummer Attending Provider [phone] Laurie Plummer Attending [facility] Unavailable Laurie Plummer Attending Unavailable Laurie Plummer Referring [place] Primary Care Unavailable Bigg Johnson Attending [place] Unavailable Laurie Plummer MD Primary Care Provider LAURIE PLUMMER Primary [place] Primary [facility]ending [facility] Allergies Allergy Classification Reported Allergen(s) Allergy Type Date of Onset Reaction(s) Facility (13 sources) Lisinopril; Translations: [lisinopril] Drug Allergy 12-28-2011 Swelling [facility] Work Phone: (13 sources) Losartan; Translations: [losartan] Drug Allergy 12-28-2011 Swelling [facility] Work Phone: (2 sources) Acetaminophen / HYDROcodone; Translations: [HYDROCODONE-ACETA MINOPHEN] Drug Allergy 06-08-2012 [facility] (2 sources) Acetaminophen / oxyCODONE; Translations: [OXYCODONE-ACETAMI NOPHEN] Drug Allergy 06-08-2012 [facility] (2 sources) Vancomycin; Translations: [VANCOMYCIN] Drug Allergy 06-08-2012 [facility] Medications Current Medications Medication Drug Class(es) Dates Sig (Normalized) Sig (Original) amoxicillin 500 mg oral capsule (1 source) Penicillin-class Antibacterial Start: 4 take 4 capsules by mouth every hour amoxicillin 500 mg capsule Take 4 capsules by mouth as directed. Take one hour prior to dental work 16 capsule 0 01/18/2014 Active aspirin 325 mg oral tablet (1 source) Platelet Aggregation Inhibitor, Nonsteroidal Anti-inflammatory Drug Start: 2 take 1 tablet by mouth once daily aspirin 325 mg tablet Take 1 tablet by mouth once daily. 120 tablet 0 04/25/2012 Active atenolol 100 mg oral tablet (19 sources) beta-Adrenergic Danielle Start: 2 End: 5 take 1 tablet by mouth once daily Atenolol 100 mg tablet Active 100 mg PO DAILY October 03, 2024 9:17am cetirizine hydrochloride 10 mg oral tablet (1 source) Histamine-1 Receptor Antagonist Start: 5 End: 5 take 1 tablet by mouth once daily cetirizine (ZYRTEC) 10 mg tablet Indications: Insect bite of right thigh, initial encounter Take 1 tablet by mouth once daily for 10 days. 10 tablet 09/13/2024 09/23/2024 Active cholecalciferol 0.05 mg oral capsule (1 source) Vitamin D Start: 4 take 1 capsule by mouth once daily Cholecalciferol (Vitamin D3) 50 mcg (2,000 unit) capsule Active 50 ug PO DAILY October 24, 2023 12:00am doxycycline hyclate 100 mg oral capsule (1 source) Tetracycline-class Drug Start: 5 take 1 capsule by mouth every twelve hours doxycycline hyclate (VIBRAMYCIN) 100 mg capsule Take 1 capsule by mouth every 12 hours. 09/10/2024 Active [id number] 0.3 ml EPINEPHrine 1 mg/ml auto-injector (1 source) alpha-Adrenergic Agonist, beta-Adrenergic Agonist, Catecholamine Start: 2 EPINEPHrine 0.3 mg/0.3 mL PnIj Indications: Angioedema Inject 0.3 mL intramuscularly as directed. 1 Each 1 12/27/2011 Active 24 hr felodipine 10 mg extended release oral tablet (19 sources) Dihydropyridine Calcium Channel Danielle Start: 2 End: 5 take 1 tablet by mouth once daily Felodipine 10 mg tablet extended release 24 hr Active 10 mg PO DAILY 90 October 03, 2024 9:17am microencapsulated potassium chloride 20 meq extended release oral tablet (20 sources) Start: 3 End: 4 take 1 tablet by mouth twice daily Potassium Chloride 20 mEq tablet,ER particles/crystals Active 20 meq PO TWICE A DAY 180 November 21, 2023 12:17pm Start: 04-23-2021 End: 10-18-2022 take 1 tablet by mouth three times daily Potassium Chloride 20 mEq tablet,ER particles/crystals Discontinued 20 meq PO THREE TIMES A DAY 90 August 04, 2022 10:56am October 18, 2022 8:06am triamcinolone acetonide 0.25 mg/ml topical cream (1 source) Corticosteroid Start: 09-13-2024 End: 09-20-2024 triamcinolone (KENALOG) 0.025 % cream Indications: Insect bite of right thigh, initial encounter Apply to affected area two times a day for 7 days. 15 g 09/13/2024 09/20/2024 Active Turmeric extract (6 sources) Start: 09-18-2021 take 400 mg by mouth every other day Turmeric Active 400 MG PO EVERY OTHER DAY September 18, 2021 11:01am Start: 09-18-2021 End: 10-18-2022 take 1 capsule by mouth every other day Turmeric 400 mg Capsule Discontinued 400 mg PO EVERY OTHER DAY September 18, 2021 12:00am October 18, 2022 8:06am Start: 09-18-2021 End: 10-18-2022 take 400 mg by mouth every other day Turmeric Discontinued 400 MG PO EVERY OTHER DAY September 18, 2021 12:00am October 18, 2022 8:06am Start: 09-18-2021 take 400 mg by mouth every other day Turmeric Active 400 MG PO EVERY OTHER DAY September 18, 2021 12:00am Completed/Discontinued Medications Medication Drug Class(es) Dates Sig (Normalized) Sig (Original) amoxicillin 875 mg / clavulanate 125 mg oral tablet (1 source) Penicillin-class Antibacterial Start: 05-07-20 16 End: 05-14-20 AMOXICILLIN-POT CLAVULANATE 875-125 MG TABS One tab Twice daily AMOXICILLIN-POT CLAVULANATE [id number] Ruiz BEAN ciprofloxacin 500 mg oral tablet (6 sources) Quinolone Antimicrobial Start: 09-26-19 End: 10-07-19 take 1 tablet by mouth twice daily Ciprofloxacin Hcl (Cipro) 500 mg tablet Discontinued 500 mg PO TWICE A DAY September 25, 2021 12:00am October 06, 2021 8:49am dutasteride 0.5 mg oral capsule (6 sources) 5-alpha Reductase Inhibitor Start: 09-18-19 End: 09-26-19 take 1 capsule by mouth once daily Dutasteride 0.5 mg capsule Discontinued 0.5 mg PO DAILY September 17, 2021 12:00am September 25, 2021 7:31am hydroCHLOROthiazide 25 mg oral tablet (11 sources) Thiazide Diuretic Start: 12-28-19 End: 10-19-19 take 1 tablet by mouth once daily Hydrochlorothiazide 25 mg tablet Discontinued 25 mg PO DAILY August 28, 2021 12:00am October 18, 2022 8:05am nystatin [id number] unt/ml oral suspension (1 source) Polyene Antifungal Start: 10-24-19 End: 10-25-19 Nystatin 100,000 unit/mL suspension Discontinued 1 mL BUCCAL THREE TIMES A DAY October 24, 2023 12:00am October 24, 2024 8:26am administer 1/2 of dose in each side of the mouth tamsulosin hydrochloride 0.4 mg oral capsule (6 sources) alpha-Adrenergic Danielle Start: 09-18-19 End: 09-26-19 take 1 capsule by mouth once daily Tamsulosin 0.4 mg capsule Discontinued 0.4 mg PO DAILY September 17, 2021 12:00am September 25, 2021 7:31am Problems Active Problems Problem Classification Problem Date Documented Date Episodic/Chronic Essential hypertension (13 sources) Hypertensive disorder; Translations: [Essential (primary) hypertension] Onset: 12-28-2011 Chronic Comment on above: CONTROLLED ON MED Genitourinary symptoms and ill-defined conditions (14 sources) Incontinence; Translations: [Unspecified urinary incontinence] Chronic Genitourinary symptoms and ill-defined conditions (20 sources) Dysuria; Translations: [Dysuria] Episodic Hemorrhoids (13 sources) Hemorrhoids; Translations: [Unspecified hemorrhoids] Onset: 03-28-2012 08-28-2021 Episodic Hyperplasia of prostate (7 sources) Large prostate ; Translations: [Benign prostatic hyperplasia without lower urinary tract symptoms] 09-17-2021 Chronic Mycoses (1 source) Candidiasis of mouth; Translations: [Candidal stomatitis] 10-24-2023 Episodic Osteoarthritis (14 sources) Arthritis; Translations: [Unspecified osteoarthritis, unspecified site] Onset: 03-28-2012 Chronic Other connective tissue disease (2 sources) Presence of unspecified artificial knee joint; Translations: [Knee joint replacement] Chronic Other ear and sense organ disorders (1 source) Sensorineural hearing loss, bilateral; Translations: [Sensorineural hearing loss, bilateral] Onset: 10-20-2011 10-20-2011 Chronic Other ear and sense organ disorders (6 sources) Does use hearing aid; Translations: [Presence of external hearing-aid] 09-17-2021 Episodic Other ear and sense organ disorders (2 sources) Presence of external hearing-aid; Translations: [Full-term ] Episodic Other upper respiratory infections (1 source) Chronic maxillary sinusitis; Translations: [Chronic maxillary sinusitis] Onset: 04-23-2016 05-07-2016 Chronic Residual codes; unclassified (3 sources) Acquired absence of other genital organ(s); Translations: [Other postprocedural status] Onset: 10-24-2023 Episodic Superficial injury; contusion (1 source) Insect bite of lower limb; Translations: [Insect bite (nonvenomous), right thigh, initial encounter] 09-13-2024 Episodic Past or Other Problems Problem Classification Problem Date Documented Date Episodic/Chronic Other injuries and conditions due to external causes (1 source) Angioedema; Translations: [Angioneurotic edema, initial encounter] Onset: 12-28-2011 12-28-2011 Episodic Other upper respiratory infections (1 source) Common cold; Translations: [Acute nasopharyngitis [common cold]] Onset: 04-28-2016 05-07-2016 Episodic Results Test Name Value Interpretation Reference Range [facility] ([facility] ) HONG ANDERS ([id number]) 1945 M Date Time Provider Department 09/13/24 8:15 AM LILIBETH ORO [facility] During your visit today, we recorded the following information about you: Temperature Pulse Respiration Blood pressure 98 degrees 64/minute 20/minute 147/83 Weight 75 kg Lilibeth Oro, SON.METALLURGICAL TESTER 09/13/2024 8:19 AM Signed [facility] Subjective Hong Anders is a 79 year old male. Patient presents with: Trauma: Upper R thigh area, stung by a bug x 1 day, states there is redness swelling and stinging in area Patient came in with complaints of bug bite on right thigh. Patient says something black with wings called up his pants and bit him. Patient says it is itchy. Patient is currently on doxycycline for different issue. Denies any other symptoms The history is provided by the patient. No senior clinical project manager was used. Trauma Review of Systems Constitutional: Negative. HENT: Negative. Objective BP 147/83 Pulse 64 Temp 36.7 ?C (98 ?F) Resp 20 Wt 75 kg (165 lb 5.5 oz) SpO2 97% Physical Exam Constitutional: Appearance: Normal appearance. Pulmonary: Effort: Pulmonary effort is normal. Musculoskeletal: Legs: Comments: Purple area velasquez puncture wound from insect bite. Red area marked erythema around puncture wound. It is all blanchable. No signs of infection. Circulation and sensation intact. Segment Assembler was in room. Neurological: Mental Status: He is alert. PAST MEDICAL HISTORY Diagnosis Date HTN (hypertension) PAST SURGICAL HISTORY Procedure Laterality Date TONSILLECTOMY HX ALLERGIES Lisinopril, Losartan, Percocet [Oxycodone-Acetaminoph en], Vancomycin, and Vicodin [Hydrocodone-Acetamino phen] MEDICATIONS doxycycline hyclate (VIBRAMYCIN) 100 mg capsule Take 1 capsule by mouth every 12 hours. potassium chloride ER (KLOR-CON) 20 mEq tablet Take 1 tablet by mouth three times a day. atenolol 100 mg tablet Take 1 tablet by mouth once daily. cetirizine (ZYRTEC) 10 mg tablet Take 1 tablet by mouth once daily for 10 days. triamcinolone (KENALOG) 0.025 % cream Apply to affected area two times a day for 7 days. amoxicillin 500 mg capsule Take 4 capsules by mouth as directed. Take one hour prior to dental work (Patient not taking: Reported on 09/13/2024) aspirin 325 mg tablet Take 1 tablet by mouth once daily. (Patient not taking: Reported on 09/13/2024) hydrochlorothiazide 25 mg tablet Take 1 tablet by mouth once daily. (Patient not taking: Reported on 09/13/2024) felodipine (PLENDIL) 10 mg 24 hr tablet Take 1 tablet by mouth once daily. EPINEPHrine 0.3 mg/0.3 mL PnIj Inject 0.3 mL intramuscularly as directed. (Patient not taking: Reported on 09/13/2024) FAMILY HISTORY Problem Relation Age of Onset other (HTN [Other]) Mother other (HTN [Other]) Son Ischemic Heart Disease Brother other (pernicious anemia [Other]) Paternal Grandfather Social History Tobacco Use Smoking status: Former Current packs/day: 0.00 Average packs/day: 2.0 packs/day for 9.0 years (18.0 ttl pk-yrs) Types: Cigarettes Start date: 04/03/1961 Quit date: 04/03/1970 Years since quittin.4 Smokeless tobacco: Never Substance Use Topics Alcohol use: Yes Alcohol/week: 4.0 standard drinks of alcohol Types: 4 Cans of Beer (12oz) per week Drug use: No Comment: denies IVDU {ASSESSMENT/PLAN: 1. Insect bite of right thigh, initial encounter - ICD9: 916.4, E906.4, ICD10: S70.361A, W57.XXXA - CETIRIZINE 10 MG TABLET - TRIAMCINOLONE ACETONIDE 0.025 % TOPICAL CREAM Patient educated about proper use of medication and supportive therapies. Patient educated about red flag symptoms to watch for. Patient will follow-up if signs and symptoms seem to be getting worse not better. Lilibeth Oro APRN.METALLURGICAL TESTER History and Record Review External record(s) reviewed: no prior records. Procedures Allergies As of Date: 09/13/2024 Noted Allergy Reaction LISINOPRIL 12/28/2011 7 - Swelling LOSARTAN 12/28/2011 7 - Swelling PERCOCET (OXYCODONE-ACETAMINOPH EN)06/08/2012 7 - Swelling Comments: Tongue,Face,Lips VANCOMYCIN 06/08/2012 7 - Swelling VICODIN (HYDROCODONE-ACETAMINO PHE*06/08/2012 7 - Swelling Date Reviewed: 09/13/2024 Reviewed by: Emily Reaves LPN - Fully Assessed Reason for Visit: Trauma [112] Cmt: Upper R thigh area, stung by a bug x 1 day, states there is redness swelling and stinging in area Primary Visit Diagnosis:Insect bite of right thigh, initial encounter [S70.361A, W57.XXXA] Order(s):cetirizine (ZYRTEC) 10 mg tabletTake 1 tablet by mouth once daily for 10 days.Disp: 10 tabletRfl: 0 triamcinolone (KENALOG) 0.025 % creamApply to affected area two times a day for 7 days.Disp: 15 gRfl: 0 Prescriptions as of 09/13/2024 - doxycycline hyclate (VIBRAMYCIN) 100 mg capsule Take 1 capsule by mouth every 12 hours. - potassium (more content not included)... Normal [facility] CBC W/Diff, Automatedon 10-14 Absolute Lymph 1.46 X10 3/uL Normal 0.83-4.51 [facility] Comment on above: Performed By: #### L [id number], L500.4050, L501.9985, L501.9520, L100.0100, L500.4100, L506.1000 #### [facility] [address] [place], [address] Absolute Neut 3.7 X10 3/uL Normal 2.0-7.7 [facility] Comment on above: Performed By: #### L [id number], L500.4050, L501.9985, L501.9520, L100.0100, L500.4100, L506.1000 #### [facility] [address] [place], [address] Basophils/100 WBC (Bld) 1.1 % High 0-1 [facility] Comment on above: Performed By: #### L [id number], L500.4050, L501.9985, L501.9520, L100.0100, L500.4100, L506.1000 #### [facility] [address] [place], [address] Eosinophils/100 WBC (Bld) 3.9 % Normal 0-5 [facility] Comment on above: Performed By: #### L 501.9910, L500.4050, L501.9985, L501.9520, L100.0100, L500.4100, L506.1000 #### [facility] [address] [place], [address] Erythrocyte distribution width (RBC) [Ratio] 12.0 % Normal 11.6-14.6 [facility] Comment on above: Performed By: #### L 501.9910, L500.4050, L501.9985, L501.9520, L100.0100, L500.4100, L506.1000 #### [facility] [address] [place], [address] Hematocrit (Bld) [Volume fraction] 45.0 % Normal 40-54 [facility] Comment on above: Performed By: #### L 501.9910, L500.4050, L501.9985, L501.9520, L100.0100, L500.4100, L506.1000 #### [facility] [address] [place], [address] Hemoglobin (Bld) [Mass/Vol] 15.0 g/dL Normal 13.0-16.5 [facility] Comment on above: Performed By: #### L 501.9910, L500.4050, L501.9985, L501.9520, L100.0100, L500.4100, L506.1000 #### [facility] [address] [place], [address] IG% 0.300 Normal 0.0-0.9 [facility] Comment on above: Result Comment: IG% - Immature Granulocytes (promyelocytes, myelocytes and metamyelocytes) > 1% indicates that a LEFT SHIFT is Present. Performed By: #### L 501.9910, L500.4050, L501.9985, L501.9520, L100.0100, L500.4100, L506.1000 #### [facility] [address] [place], [address] Lymphocytes/100 WBC (Bld) 23.8 % Normal 19-41 [facility] Comment on above: Performed By: #### L 501.9910, L500.4050, L501.9985, L501.9520, L100.0100, L500.4100, L506.1000 #### [facility] [address] [place], [address] MCH (RBC) [Entitic mass] 31.2 pg Normal 27.0-32.0 [facility] Comment on above: Performed By: #### L 501.9910, L500.4050, L501.9985, L501.9520, L100.0100, L500.4100, L506.1000 #### [facility] [address] [place], [address] MCHC (RBC) [Mass/Vol] 33.3 g/dL Normal 32-36 [facility] Comment on above: Performed By: #### L 501.9910, L500.4050, L501.9985, L501.9520, L100.0100, L500.4100, L506.1000 #### [facility] [address] [place], [address] MCV (RBC) [Entitic vol] 93.6 fL Normal 80-94 [facility] Comment on above: Performed By: #### L 501.9910, L500.4050, L501.9985, L501.9520, L100.0100, L500.4100, L506.1000 #### [facility] [address] [place], [address] Monocytes/100 WBC (Bld) 10.6 % High 0-10 [facility] Comment on above: Performed By: #### L 501.9910, L500.4050, L501.9985, L501.9520, L100.0100, L500.4100, L506.1000 #### [facility] [address] [place], [address] Neutrophils/100 WBC (Bld) 60.3 % Normal 47-70 [facility] Comment on above: Performed By: #### L 501.9910, L500.4050, L501.9985, L501.9520, L100.0100, L500.4100, L506.1000 #### [facility] [address] [facility] [place], [address] Nucleated RBC (Bld) [#/Vol] 0 10*3/uL Normal 0-5 [facility] Comment on above: Performed By: #### L 501.9910, L500.4050, L501.9985, L501.9520, L100.0100, L500.4100, L506.1000 #### [facility] [address] [place], [address] Platelet mean volume (Bld) [Entitic vol] 9.3 fL Normal 6.2-12.0 [facility] Comment on above: Performed By: #### L 501.9910, L500.4050, L501.9985, L501.9520, L100.0100, L500.4100, L506.1000 #### [facility] [address] [facility] [place], [address] Platelets (Bld) [#/Vol] 299 10*3/uL Normal 150-450 [facility] Comment on above: Performed By: #### L 501.9910, L500.4050, L501.9985, L501.9520, L100.0100, L500.4100, L506.1000 #### [facility] [address] [place], [address] RBC (Bld) [#/Vol] 4.81 10*6/uL Normal 4.6-6.2 [facility] Comment on above: Performed By: #### L 501.9910, L500.4050, L501.9985, L501.9520, L100.0100, L500.4100, L506.1000 #### [facility] [address] [place], [address] RDW SD 42.1 fl Normal 35.1-43.9 [facility] Comment on above: Performed By: #### L 501.9910, L500.4050, L501.9985, L501.9520, L100.0100, L500.4100, L506.1000 #### [facility] [address] [place], [address] WBC (Bld) [#/Vol] 6.1 10*3/uL Normal 4.4-11.0 [facility] Comment on above: Performed By: #### L 501.9910, L500.4050, L501.9985, L501.9520, L100.0100, L500.4100, L506.1000 #### [facility] [address] [place], [address] Comprehensive Metabolic Prof gaon 10-24-2023 Albumin [Mass/Vol] 4.1 g/dL Normal 3.2-5.0 [facility] Comment on above: Performed By: #### L 501.9910, L500.4050, L501.9985, L501.9520, L100.0100, L500.4100, L506.1000 #### [facility] [address] [place], [address] Albumin/Globulin [Mass ratio] 1.1 {ratio} Normal 0.9-2.4 [facility] Comment on above: Performed By: #### L 501.9910, L500.4050, L501.9985, L501.9520, L100.0100, L500.4100, L506.1000 #### [facility] [address] [place], [address] ALK P 108 U/L Normal 45-117 [facility] Comment on above: Performed By: #### L 501.9910, L500.4050, L501.9985, L501.9520, L100.0100, L500.4100, L506.1000 #### [facility] [address] [place], [address] ALT [Catalytic activity/Vol] 22 U/L Normal 16-61 [facility] Comment on above: Performed By: #### L 501.9910, L500.4050, L501.9985, L501.9520, L100.0100, L500.4100, L506.1000 #### [facility] [address] [place], [address] AST [Catalytic activity/Vol] 20 U/L Normal 15-37 [facility] Comment on above: Performed By: #### L 501.9910, L500.4050, L501.9985, L501.9520, L100.0100, L500.4100, L506.1000 #### [facility] [address] [place], [address] Bilirubin [Mass/Vol] 0.90 mg/dL Normal 0.20-1.00 [facility] Comment on above: Result Comment: For patients on eltrombopag therapy, use of Dimension [place] TBIL is not recommended. Performed By: #### L 501.9910, L500.4050, L501.9985, L501.9520, L100.0100, L500.4100, L506.1000 #### [facility] [address] [place], [address] BUN/CRE 16.5 RATIO Normal 10-20 [facility] Comment on above: Performed By: #### L 501.9910, L500.4050, L501.9985, L501.9520, L100.0100, L500.4100, L506.1000 #### [facility] [address] [place], [address] CA,Total 9.3 mg/dL Normal 8.5-10.1 [facility] Comment on above: Performed By: #### L 501.9910, L500.4050, L501.9985, L501.9520, L100.0100, L500.4100, L506.1000 #### [facility] [address] [place], [address] Chloride [Moles/Vol] 107 mmol/L Normal 98-107 [facility] Comment on above: Performed By: #### L 501.9910, L500.4050, L501.9985, L501.9520, L100.0100, L500.4100, L506.1000 #### [facility] [address] [place], [address] CO2 [Moles/Vol] 28.0 mmol/L Normal 21.0-32.0 [facility] Comment on above: Performed By: #### L 501.9910, L500.4050, L501.9985, L501.9520, L100.0100, L500.4100, L506.1000 #### [facility] [address] [place], [address] Creatinine [Mass/Vol] 0.85 mg/dL Normal 0.70-1.30 [facility] Comment on above: Result Comment: The validity of the calculated GFR GFRAA in patients over 70 years has not been determined. Clinical correlation is essential. Performed By: #### L 501.9910, L500.4050, L501.9985, L501.9520, L100.0100, L500.4100, L506.1000 #### [facility] [address] [place], [address] EST GFR - AA 112 mL/min Normal >60 [facility] Comment on above: Result Comment: Afri can [place] GFR Calc Performed By: #### L 501.9910, L500.4050, L501.9985, L501.9520, L100.0100, L500.4100, L506.1000 #### [facility] [address] [place], [place], [address] (822) GAP 4 Low 5-15 [facility] Comment on above: Performed By: #### L 501.9910, L500.4050, L501.9985, L501.9520, L100.0100, L500.4100, L506.1000 #### [facility] [address] [place], [address] GFR/1.73 sq M.predicted among non-blacks MDRD (S/P/Bld) [Vol rate/Area] 93 mL/min/{1.73_m2} Normal >60 [facility] Comment on above: Result Comment: Non- GFR Calc Performed By: #### L 501.9910, L500.4050, L501.9985, L501.9520, L100.0100, L500.4100, L506.1000 #### [facility] [address] [place], [address] Globulin (S) [Mass/Vol] 3.8 g/dL Normal 2.2-4.2 [facility] Comment on above: Performed By: #### L 501.9910, L500.4050, L501.9985, L501.9520, L100.0100, L500.4100, L506.1000 #### [facility] [address] [place], [address] Glucose [Mass/Vol] 102 mg/dL Normal 74-106 [facility] Comment on above: Result Comment: Fast ing Glucose result from 100 to 125 mg/dL suggests IMPAIRED HOMEOSTASIS per A.D.A. criteria. Performed By: #### L 501.9910, L500.4050, L501.9985, L501.9520, L100.0100, L500.4100, L506.1000 #### [facility] [address] [place], [address] Potassium [Moles/Vol] 3.6 mmol/L Normal 3.5-5.1 [facility] Comment on above: Performed By: #### L 501.9910, L500.4050, L501.9985, L501.9520, L100.0100, L500.4100, L506.1000 #### [facility] [address] [place], [address] Sodium [Moles/Vol] 139 mmol/L Normal 136-145 [facility] Comment on above: Performed By: #### L 501.9910, L500.4050, L501.9985, L501.9520, L100.0100, L500.4100, L506.1000 #### [facility] [address] [place], [address] T PROT 7.9 g/dL Normal 6.4-8.2 [facility] Comment on above: Performed By: #### L 501.9910, L500.4050, L501.9985, L501.9520, L100.0100, L500.4100, L506.1000 #### [facility] [address] [place], [address] Urea nitrogen [Mass/Vol] 14 mg/dL Normal 7-18 [facility] Comment on above: Performed By: #### L 501.9910, L500.4050, L501.9985, L501.9520, L100.0100, L500.4100, L506.1000 #### [facility] [address] [place], [address] Hemoglobin A1con 10-24-2023 HbA1c (Bld) [Mass fraction] 5.5 % Normal 3.8-5.6 [facility] Comment on above: Result Comment: Norm al < 5.7 % Prediabetic 5.7 - 6.4 % Diabetic >or= 6.5 % Please note range changes. Performed By: #### L 501.9910, L500.4050, L501.9985, L501.9520, L100.0100, L500.4100, L506.1000 #### [facility] [address] [place], [address] Lipid Profileon 10-24-2023 Cholesterol [Mass/Vol] 165 mg/dL Normal 200 [facility] Comment on above: Result Comment: <200 mg/dL Desirable 200-240 mg/dL Borderline >240 mg/dL High Risk Performed By: #### L 501.9910, L500.4050, L501.9985, L501.9520, L100.0100, L500.4100, L506.1000 #### [facility] [address] [place], [address] Cholesterol in HDL [Mass/Vol] 58 mg/dL Normal [facility] Comment on above: Result Comment: The drugs N-Acetylcysteine and Metamizole may falsely depress this assay. Reference Range HDL <40 mg/dL Low HDL Cholesterol HDL >or= 60 mg/dL High HDL Cholesterol Performed By: #### L 501.9910, L500.4050, L501.9985, L501.9520, L100.0100, L500.4100, L506.1000 #### [facility] [address] [place], [address] Cholesterol in LDL [Mass/Vol] 91 mg/dL Normal 0-130 [facility] Comment on above: Performed By: #### L 501.9910, L500.4050, L501.9985, L501.9520, L100.0100, L500.4100, L506.1000 #### [facility] [address] [place], [address] Cholesterol in VLDL [Mass/Vol] 16 mg/dL Normal 5-40 [facility] Comment on above: Performed By: #### L 501.9910, L500.4050, L501.9985, L501.9520, L100.0100, L500.4100, L506.1000 #### [facility] [address] [place], [address] Triglyceride [Mass/Vol] 80 mg/dL Normal [facility] Comment on above: Result Comment: The drugs N-Acetylcysteine and Metamizole may falsely depress this assay. Serum Triglycerides Reference Interval Normal <150 mg/dL Borderline high 150 - 199 mg/dL High 200 - 499 mg/dL Very High > or = 500 mg/dL Performed By: #### L 501.9910, L500.4050, L501.9985, L501.9520, L100.0100, L500.4100, L506.1000 #### [facility] [address] [place], [address] MR/BMS.IMBon 10-24-2023 MR/BMS.IMB [facility] [address] [place], [place] [address] OFFICE VISIT Date of Service: 10/24/23 MR#: [id number] Acct: [id number] Name: HONG ANDERS Rep #: [id number] : 1945 Provider: Dr. Laurie alfaro MD Age/Sex: 78/M Location: [facility] Status: Signed Intake Vital Signs 12/16/22 08:40 10/24/23 08:25 Height 5 ft 9 in 5 ft 9 in Weight: 165 lb BMI 24.3 BP 136/82 H Blood Pressure Location Lt brachial Position Sitting Respiration 16 Pulse 62 Pulse Source Monitor Temp 97.8 F Temp Source Temporal Pulse Oximetry (%) 98 Oxygen Delivery Method room air Intake Visit Reasons: Annual/Physical Chief Complaint: annual Healthcare Business Analyst Required: No Accompanied by: Self Is patient in pain?: No Allergies lisinopril Allergy (Verified 10/24/23 08:21) unknown losartan Allergy (Verified 10/24/23 08:21) unknown Medications ???Medication ???Instructions ???Recorded ???Confirmed ???Type potassium chloride 20 mEq 20 meq PO BID #180 tabs 10/18/22 10/24/23 Rx tablet,extended release(part/cryst) atenolol 100 mg tablet 100 mg PO DAILY #90 tabs 10/11/23 10/24/23 Rx felodipine 10 mg tablet,extended 10 mg PO DAILY #90 tabs 10/11/23 10/24/23 Rx release 24 hr cholecalciferol (vitamin D3) 50 50 mcg PO DAILY 10/24/23 10/24/23 History mcg (2,000 unit) capsule nystatin 100,000 unit/mL oral 1 ml buccal TID #60 mL 10/24/23 10/24/23 Rx suspension PFSH Medical History Easy bruising Wears partial dentures Wears glasses Alcohol use Enlarged prostate History of IBS Non-smoker Leg cramps History of stress test Wears hearing aid in both ears Incontinence Hemorrhoids Arthritis HTN (hypertension) Surgical History History of transurethral resection of prostate Hx of bilateral cataract extraction History of tonsillectomy and adenoidectomy History of partial knee replacement Family History Mother Arthritis Hypertension Father Stomach cancer Brother Heart disease Social History Smoking Status: Never smoker alcohol intake: current alcohol intake frequency: 0-2 drinks per day Alcohol type: beer substance use type: does not use what type of physical activity do you participate in: walking frequency: 3-4 times per week duration: 15-30 minutes/day HPI HPI Chief Complaint: annual Details: HONG ANDERS, is a 78 M who presents to the office today for annual follow-up. 78-year-old male who also follows every 6 months we are rotating [id number] between the [place]. He is follows with Dr. Abiodun Mejia, [facility]. He has a history of controlled hypertension on atenolol 100 mg daily, Fortipine 10 mg daily, potassium supplement and he is also on vitamin D. Generally speaking is been feeling well. He has no chest pain, shortness of breath, wheeze, cough, congestion, fever, chills, nausea or vomiting. Appetite is good. No change in bowel movements. He had a TURP 2 years ago and has been relatively stable since. He is up usually to perhaps 3 or occasionally more times per night. Generally speaking it is pretty limited however. Feels he still has good stream. No dysuria, urgency. Again follows with the [place]. He did have labs about 6 months ago. I think it is reasonable that we update things here as well and he is in agreement with plan. The only acute issue is that his he h as noted a little bit of gum swelling in the upper gums. He has partials upper and lower. He noted no pain, discomfort at all. He did contact the dentist and is stated as long as he did not have pain, discomfort or anything they would simply watch. However recently on a couple of occasions he has noticed a little bit of blood when he is brushing, coming apparently from the upper gum. Remote smoker for just a few years. Smokes a few cigars over his lifetime but never chewed tobacco. Review of systems per chart. Physical exam. Vital signs on chart. PERRLA. Sclera are clear. Bilateral hearing appliances. TMs are unremarkable with normal light reflexes. Canals are unremarkable. Posterior pharynx is unremarkable. Dentition in fair repair. In the upper gum, there is a little mild erythema, and a little bit of whitish coating that could represent yeast. Little more noticeable on the lower gums consistent with yeast. No cervical or supraclavicular lymph nodes enlarged or tender. No clear thyromegaly. No thyroid nodules readily palpable. No carotid bruits. Lungs are without wheeze, rhonchi, rales. No E/A changes are heard. Heart is regular. Not tachycardic. No clear murmur, rub, or gallop is identified. The abdomen is soft. Bowel sounds are present. N (more content not included)... Normal [facility] PSA,Total - Annual Screenon 10-24-2023 PSA,TOT SCREEN 1.28 ng/mL Normal 0.00-4.00 [facility] Comment on above: Result Comment: This test was performed using the TPSA assay method for the [employer] chemistry system. Values obtained with different assay methods cannot be used interchangably. When changing PSA assays in the course of monitoring a patient, additional sequential testing should be carried out to confirm baseline values. Performed By: #### L 501.9910, L500.4050, L501.9985, L501.9520, L100.0100, L500.4100, L506.1000 #### [facility] [address] [place], [place], [address] Thyroid Stim Hormone (TSH)on 10-24-2023 TSH 1.34 uIU/mL Normal 0.358-3.74 [facility] Comment on above: Performed By: #### L 501.9910, L500.4050, L501.9985, L501.9520, L100.0100, L500.4100, L506.1000 #### [facility] [address] [place], [place], [address] Vitamin D,25 Hydroxyon 10-23 Vitamin D 25-OH 22.6 ng/mL Normal [facility] Comment on above: Result Comment: Anat min D 25(OH) Status Range Deficiency <20 ng/mL (50nmol/L) Insufficiency 20 - 30 ng/mL (50 - 75 nmol/L) Sufficiency 30 - 100 ng/mL (75 - 250 nmol/L) Toxicity >100 ng/mL (>250 nmol/L) Performed By: #### L 501.9910, L500.4050, L501.9985, L501.9520, L100.0100, L500.4100, L506.1000 #### [facility] [address] [place], [address] Emergency Department Summary on 12-16-2022 Emergency Department Summary [facility] Medical Records Department [address] [place] [address] Emergency Department Summary 12/16/22 MR#: [id number] Acct: [id number] Name: HONG ANDERS Rep #: [id number] : 1945 77 From: Bigg Johnson MD PCP: [facility],[place] Status:PRE ER Location: ED HPI History of Present Illness Chief Complaint: GI Bleed Detail of Chief Complaint: Bright red blood per rectum Informant: patient Onset/Context/Timing Onset: Today and Yesterday Context: Sudden Onset Timing: Intermittent Quality: Blood with bowel movement and noted small amount of blood lysate on underwe Current Severity: Moderate Maximum Severity: Moderate Worsened by: Bowel movement Relieved by: Not applicable Associated Symptoms Associated Symptoms: None Narrative Narrative: Patient is a 77-year-old male presents with bright red blood per rectum yesterday x1 and x2 today. He is noted with bowel movement and noted blood in his underwear after bowel movement. He denies orthostatic symptoms. He is not on an anticoagulant. He denies cardiac or respiratory symptoms. He has a remote history of hemorrhoids. He had a polypectomy performed by Dr. Ariel Horn 1 year ago. Prior similar symptoms: Yes (Hemorrhoids) Recent Illness/Hospitalizatio n: No PFSH PFS Medical History Alcohol use Arthritis Easy bruising Enlarged prostate Hemorrhoids History of IBS History of stress test HTN (hypertension) Incontinence Leg cramps Non-smoker Wears glasses Wears hearing aid in both ears Wears partial dentures Home Medications atenolol 100 mg tablet 100 mg PO DAILY #90 tabs 10/18/22 [Rx Last Taken Unknown] felodipine 10 mg tablet,extended release 24 hr 10 mg PO DAILY #90 tabs 10/18/22 [Rx Last Taken Unknown] potassium chloride 20 mEq tablet,extended release(part/cryst) 20 meq PO BID #180 tabs 10/18/22 [Rx Last Taken Unknown] Allergy/AdvReac Type Severity Reaction Status Date / Time lisinopril Allergy unknown Verified 12/16/22 08:40 losartan Allergy unknown Verified 12/16/22 08:40 Family History Mother Arthritis Hypertension Father Stomach cancer Brother Heart disease Surgical History History of partial knee replacement History of tonsillectomy and adenoidectomy History of transurethral resection of prostate Hx of bilateral cataract extraction Social History Smoking Status: Never smoker alcohol intake: current alcohol intake frequency: 0-2 drinks per day Alcohol type: beer substance use type: does not use what type of physical activity do you participate in: walking frequency: 3-4 times per week duration: 15-30 minutes/day ROS ROS ED Constitutional Constitutional ED: Denies chills, fever(s), subjective, sweats or weight loss Cardiovascular Cardiovascular: Denies chest pain or palpitations Respiratory/Chest Respiratory/Chest: Denies dyspnea or dyspnea on exertion Gastrointestinal Gastrointestinal: Reports other Details: Hematochezia ; Denies abdominal pain, constipation, diarrhea, melena, nausea or vomiting Genitourinary Genitourinary ED: Denies hematuria or urinary frequency Hematologic/Lymphatic Hematologic/Lymphatic: Reports systems reviewed and no addt'l complaints, except as documented EXAM Physical Exam Const Vital Signs: 12/16/22 08:40 Temperature 97.5 F L Temperature Source Temporal Pulse Rate 70 Respiratory Rate 16 Blood Pressure 128/94 H Blood Pressure Mean 105 Pulse Ox 98 Positive well nourished and well developed General Appearance ED: well developed and NAD; Negative for pallor HEENT Reports moist mucous membranes HEENT Narrative: Head is atraumatic normocephalic. Ears normal. Eyes PERRL and EOMs intact bilaterally General Eye ED: Negative for pale conjunctiva or scleral icterus Neck no lymphadenopathy, supple and no JVD Resp normal respiratory effort and clear to auscultation bilaterally Cardio regular rate, S2 normal heart sound and no murmurs GI normal to inspection, nondistended, normoactive bowel sounds, non-tender, non-distended and no masses; Negative for hepatosplenomegaly GI Narrative: And has brown stool. There is no obvious bright red blood noted at this time. Rectal Exam: normal sphincter tone and prostate normal Back/Spine no CVA tenderness Extremity normal to inspection Neuro oriented x3 and CN's II-XII intact bilaterally Sensorium / Orientation: alert Psych Mood Affect: anxious Skin no rashes or lesions noted and no wounds General Skin Exam: Negative for jaundice or pallor MDM MDM MDM Narrative Medical decision making narrative: SPECT patient has (more content not included)... Normal [facility] Absolute lymphocyte countOrd ered By: Laurie Plummer on 10-05-2022 Lymphocytes Auto (Unsp spec) [#/Vol] 1.66 10*3/uL 0.83-4.51 [facility] Basophil percentageOrdered B y: Laurie Plummer on 10-05-2022 Basophils/100 WBC (Bld) 1.3 % 0-1 [facility] Bilirubin [Mass/Vol] 0.80 mg/dL 0.20-1.00 [facility] Comment on above: For patients on eltr ombopag therapy, use of Dimension [place] TBIL is not recommended. Chloride [Moles/Vol] 106 mmol/L 98-107 [facility] Cholesterol [Mass/Vol] 165 mg/dL <200 [facility] Comment on above: <200 mg/dL Desirable 200-240 mg/dL Borderline >240 mg/dL High Risk Eosinophils/100 WBC (Bld) 4.8 % 0-5 [facility] Glucose [Mass/Vol] 87 mg/dL 74-106 [facility] Neutrophils (Bld) [#/Vol] 3.2 10*3/uL 2.0-7.7 [facility] Neutrophils/100 WBC (Bld) 53.1 % 47-70 [facility] Potassium [Moles/Vol] 3.9 mmol/L 3.5-5.1 [facility] Protein [Mass/Vol] 7.7 g/dL 6.4-8.2 [facility] Sodium [Moles/Vol] 137 mmol/L 136-145 [facility] Triglyceride [Mass/Vol] 68 mg/dL <199 [facility] Comment on above: The drugs N-Acetylcy steine and Metamizole may falsely depress this assay.Serum Triglycerides Reference Interval Normal <150 mg/dL Borderline high 150 - 199 mg/dL High 200 - 499 mg/dL Very High > or = 500 mg/dL WBC (Bld) [#/Vol] 6.0 10*3/uL 4.4-11.0 [facility] Blood erythrocytes count (nu mber/volume)Ordered By: Laurie Plummer on 10-05-2022 RBC (Bld) [#/Vol] 4.78 10*6/uL 4.6-6.2 [facility] Blood hemoglobin measurement (mass/volume)Ordered By: Laurie Plummer on 10-05-2022 Hemoglobin (Bld) [Mass/Vol] 15.1 g/dL 13.0-16.5 [facility] Blood lymphocytes/100 leukoc ytesOrdered By: Laurie Plummer on 10-05-2022 Lymphocytes/100 WBC (Bld) 27.6 % 19-41 [facility] Blood monocytes/100 leukocyt esOrdered By: Laurie Plummer on 10-05-2022 Monocytes/100 WBC (Bld) 13.0 % 0-10 [facility] Blood platelet mean volumeOr dered By: Laurie Plummer on 10-05-2022 Platelet mean volume (Bld) [Entitic vol] 9.3 fL 6.2-12.0 [facility] Determination of erythrocyte mean corpuscular volume (MCV)Ordered By: Laurie Plummer on 10-05-2022 MCV (RBC) [Entitic vol] 92.3 fL 80-94 [facility] Hematocrit Auto (Bld) [Volum e fraction]Ordered By: Laurie Plummer on 10-05-2022 Hematocrit (Bld) [Volume fraction] 44.1 % 40-54 [facility] - Chemistry and C hemistry - challengeOrdered By: Laurie Plummer on 10-05-2022 ALP [Catalytic activity/Vol] 103 U/L 45-117 [facility] ALT [Catalytic activity/Vol] 25 U/L 16-61 [facility] CO2 [Moles/Vol] 25.0 mmol/L 21.0-32.0 [facility] Globulin (S) [Mass/Vol] 3.9 g/dL 2.2-4.2 [facility] Magnesium [Mass/Vol] 2.5 mg/dL 1.6-2.6 [facility] Urea nitrogen/Creatinine [Mass ratio] 16.3 mg/mg 10-20 [facility] - Hematology and Cell countsOrdered By: Laurie Plummer on 10-05-2022 Erythrocyte distribution width (RBC) [Entitic vol] 42.5 fL 35.1-43.9 [facility] Erythrocyte distribution width (RBC) [Ratio] 12.5 % 11.6-14.6 [facility] Immature granulocytes/100 WBC (Bld) 0.200 % 0.0-0.9 [facility] Comment on above: IG% - Immature Granu locytes (promyelocytes, myelocytes and metamyelocytes) > 1% indicates that a LEFT SHIFT is Present. MCH (RBC) [Entitic mass] 31.6 pg 27.0-32.0 [facility] Nucleated RBC/100 WBC (Bld) [Ratio] 0 % 0-5 [facility] MCHC Auto (RBC) [Mass/Vol]Or dered By: Laurie Plummer on 10-05-2022 MCHC (RBC) [Mass/Vol] 34.2 g/dL 32-36 [facility] No Panel InformationOrdered By: Laurie Plummer on 10-05-2022 Estimated GFR (MDRD) Amer 121 mL/min >60 [facility] Comment on above: GFR Calc Estimated GFR (MDRD) Non-Af Amer 100 mL/min >60 [facility] Comment on above: Non- GFR Calc Prostate Specific Antigen Screen 0.91 ng/mL 0.00-4.00 [facility] Comment on above: This test was perfor med using the TPSA assay method for the[employer] chemistry system. Values obtained with differentassay methods cannot be used interchangably.When changing PSA assays in the course of monitoring apatient, additional sequential testing should be carriedout to confirm baseline values. Thyroid Stimulating Hormone (TSH) 1.25 uIU/mL 0.358-3.74 [facility] Vitamin D 25-Hydroxy 36.8 ng/mL [facility] Comment on above: Vitamin D 25(OH) Sta tus Range Deficiency <20 ng/mL (50nmol/L) Insufficiency 20 - 30 ng/mL (50 - 75 nmol/L) Sufficiency 30 - 100 ng/mL (75 - 250 nmol/L) Toxicity >100 ng/mL (>250 nmol/L) Platelets bldOrdered By: Cynthia Plummer on 10-05-2022 Platelets (Bld) [#/Vol] 297 10*3/uL 150-450 [facility] Serum or plasma albumin deidra urement (mass/volume)Ordered By: Laurie Plummer on 10-05-2022 Albumin [Mass/Vol] 3.8 g/dL 3.2-5.0 [facility] Serum or plasma albumin/glob ulin mass ratioOrdered By: Laurie Plummer on 10-05-2022 Albumin/Globulin [Mass ratio] 1.0 {ratio} 0.9-2.4 [facility] Serum or plasma calcium deidra urement (mass/volume)Ordered By: Laurie Plummer on 10-05-2022 Calcium [Mass/Vol] 9.2 mg/dL 8.5-10.1 [facility] Serum or plasma cholesterol in HDL measurement (mass/volume)Ordered By: Laurie lPummer on 10-05-2022 Cholesterol in HDL [Mass/Vol] 59 mg/dL >40 [facility] Comment on above: The drugs N-Acetylcy steine and Metamizole may falsely depress this assay. Reference Range HDL <40 mg/dL Low HDL Cholesterol HDL >or= 60 mg/dL High HDL Cholesterol Serum or plasma cholesterol in VLDL measurement (mass/volume)Ordered By: Laurie Plummer on 10-05-2022 Cholesterol in VLDL [Mass/Vol] 14 mg/dL 5-40 [facility] Serum or plasma creatinine m easurement (mass/volume)Ordered By: Laurie Plummer on 10-05-2022 Creatinine [Mass/Vol] 0.80 mg/dL 0.70-1.30 [facility] Comment on above: The validity of the calculated GFR & GFRAA in patients over 70 years has not been determined. Clinical correlation is essential. Serum or plasma low density lipoprotein (LDL) cholesterol measurement (mass/volume)Ordered By: Laurie Plummer on 10-05-2022 Cholesterol in LDL [Mass/Vol] 92 mg/dL 0-130 [facility] Serum or plasma urea nitroge n measurement (mass/volume)Ordered By: Laurie Plummer on 10-05-2022 Urea nitrogen [Mass/Vol] 13 mg/dL 7-18 [facility] Thin prep Papanicolaou smear with manual screeningOrdered By: Laurie Plummer on 10-05-2022 Thin prep Papanicolaou smear with manual screening 16 U/L 15-37 [facility] Thin prep Papanicolaou smear with manual screening 6 5-15 [facility] Whole blood hemoglobin A1c/t otal hemoglobin ratio (mass fraction)Ordered By: Laurie Plummer on 10-05-2022 HbA1c (Bld) [Mass fraction] 5.7 % 3.8-5.6 [facility] Comment on above: Normal < 5.7 % Predi abetic 5.7 - 6.4 % Diabetic >or= 6.5 % Please note range changes. Culture, urineOrdered By: Dr Diane Ribera on 09-03-2022 Bacteria identified Cx Nom (U) Staphylococcus lugdunensis [facility] Culture, urineOrdered By: Orquidea Ribera on 09-01-2022 Bacteria identified Cx Nom (U) Staphylococcus lugdunensis [facility] Culture, urineOrdered By: Dr Diane Ribera on 08-11-2022 Bacteria identified Cx Nom (U) Staphylococcus aureus [facility] Culture, urineon 10-06-2021 Bacteria identified Cx Nom (U) Staphylococcus aureus [facility] Work Phone: Basophil percentageon 2021 Bilirubin [Mass/Vol] 0.60 mg/dL 0.20-1.00 [facility] Work Phone: Comment on above: For patients on eltr ombopag therapy, use of Dimension [place] TBIL is not recommended. Chloride [Moles/Vol] 101 mmol/L 98-107 [facility] Work Phone: Glucose [Mass/Vol] 114 mg/dL 74-106 [facility] Work Phone: Comment on above: Fasting Glucose resu lt from 100 to 125 mg/dL suggests IMPAIRED HOMEOSTASIS per A.D.A. criteria. Potassium [Moles/Vol] 3.4 mmol/L 3.5-5.1 [facility] Work Phone: Protein [Mass/Vol] 7.4 g/dL 6.4-8.2 [facility] Work Phone: [phone] Sodium [Moles/Vol] 136 mmol/L 136-145 [facility] Work Phone: [phone] WBC (Bld) [#/Vol] 5.8 10*3/uL 4.4-11.0 [facility] Work Phone: Blood erythrocytes count (nu mber/volume)on 09-23-2021 RBC (Bld) [#/Vol] 4.17 10*6/uL 4.6-6.2 [facility] Work Phone: Blood hemoglobin measurement (mass/volume)on 09-23-2021 Hemoglobin (Bld) [Mass/Vol] 13.0 g/dL 13.0-16.5 [facility] Work Phone: [phone] Blood platelet mean volumeon 09-23-2021 Platelet mean volume (Bld) [Entitic vol] 9.4 fL 6.2-12.0 [facility] Work Phone: Determination of erythrocyte mean corpuscular volume (MCV)on 09-23-2021 MCV (RBC) [Entitic vol] 95.2 fL 80-94 [facility] Work Phone: Direct bilirubinon Bilirubin.direct [Mass/Vol] 0.17 mg/dL 0.00-0.30 [facility] Work Phone: [phone] Hematocrit Auto (Bld) [Volum e fraction]on 09-23-2021 Hematocrit (Bld) [Volume fraction] 39.7 % 40-54 [facility] Work Phone: INR in Blood by Coagulation assayon 09-23-2021 INR Coag (Bld) [Relative time] 1.0 {INR} [facility] Work Phone: [phone] Laboratory - Chemistry and C hemistry - challengeon 09-23-2021 ALP [Catalytic activity/Vol] 79 U/L 45-117 [facility] Work Phone: ALT [Catalytic activity/Vol] 22 U/L 16-61 [facility] Work Phone: [phone] CO2 [Moles/Vol] 27.0 mmol/L 21.0-32.0 [facility] Work Phone: Globulin (S) [Mass/Vol] 3.7 g/dL 2.2-4.2 [facility] Work Phone: Urea nitrogen/Creatinine [Mass ratio] 20.3 mg/mg 10-20 [facility] Work Phone: Laboratory - Coagulationon 0 09-23-2021 aPTT Coag (Bld) [Time] 29.0 s 24.1-36.2 [facility] Work Phone: PT Coag (PPP) [Time] 13.2 s 11.7-14.9 [facility] Work Phone: Laboratory - Hematology and Cell countson 09-23-2021 Erythrocyte distribution width (RBC) [Entitic vol] 42.3 fL 35.1-43.9 [facility] Work Phone: Erythrocyte distribution width (RBC) [Ratio] 12.1 % 11.6-14.6 [facility] Work Phone: [phone] MCH (RBC) [Entitic mass] 31.2 pg 27.0-32.0 [facility] Work Phone: MCHC Auto (RBC) [Mass/Vol]on 09-23-2021 MCHC (RBC) [Mass/Vol] 32.7 g/dL 32-36 [facility] Work Phone: No Panel Informationon 09-23 Estimated GFR (MDRD) Amer 95 mL/min >60 [facility] Work Phone: Comment on above: GFR Calc Estimated GFR (MDRD) Non-Af Amer 78 mL/min >60 [facility] Work Phone: Comment on above: Non- GFR Calc Platelets bldon 09-23-2021 Platelets (Bld) [#/Vol] 298 10*3/uL 150-450 [facility] Work Phone: Serum or plasma albumin deidra urement (mass/volume)on 09-23-2021 Albumin [Mass/Vol] 3.7 g/dL 3.2-5.0 [facility] Work Phone: Serum or plasma calcium deidra urement (mass/volume)on 09-23-2021 Calcium [Mass/Vol] 9.3 mg/dL 8.5-10.1 [facility] Work Phone: Serum or plasma creatinine m easurement (mass/volume)on 09-23-2021 Creatinine [Mass/Vol] 0.98 mg/dL 0.70-1.30 [facility] Work Phone: Comment on above: The validity of the calculated GFR & GFRAA in patients over 70 years has not been determined. Clinical correlation is essential. Serum or plasma urea nitroge n measurement (mass/volume)on 09-23-2021 Urea nitrogen [Mass/Vol] 20 mg/dL 7-18 [facility] Work Phone: Thin prep Papanicolaou smear with manual screeningon 09-23-2021 Thin prep Papanicolaou smear with manual screening 14 U/L 15-37 [facility] Work Phone: [phone] Thin prep Papanicolaou smear with manual screening 8 5-15 [facility] Work Phone: Basophil percentageon 2021 Basophil percentage 0 SEEN /hpf [facility] Work Phone: Bilirubin Test strip Ql (U)o n 08-28-2021 Bilirubin Ql (U) Negative Negative [facility] Work Phone: Culture, urineon 08-28-2021 Bacteria identified Cx Nom (U) Culture exhibits no growth. [facility] Work Phone: Ketones Test strip Ql (U)on 08-28-2021 Ketones Ql (U) Negative Negative [facility] Work Phone: Laboratory - Chemistry and C hemistry - challengeon 08-28-2021 Bilirubin Ql (U) Negative [facility] Work Phone: Glucose Ql (U) Negative [facility] Work Phone: Ketones Ql (U) Negative [facility] Work Phone: pH (U) 6.0 [pH] [facility] Work Phone: Specific gravity (U) [Rel density] 1.015 [facility] Work Phone: Urobilinogen (U) [Mass/Vol] Negative [facility] Work Phone: Laboratory - Hematology and Cell countson 08-28-2021 Hemoglobin Ql (U) Negative [facility] Work Phone: Laboratory - Specimen inform ationon 08-28-2021 Clarity (U) Clear [facility] Work Phone: Color (U) YELLOW [facility] Work Phone: Laboratory - Urinalysison Nitrite Ql (U) Negative [facility] Work Phone: Protein Ql (U) Negative [facility] Work Phone: Mucus LM Ql (Urine sed)on Mucus Ql (Urine sed) 0 SEEN /hpf [facility] Work Phone: Nitrite Test strip Ql (U)on 08-28-2021 Nitrite Ql (U) Negative Negative [facility] Work Phone: No Panel Informationon 08-28 Urine Leukocytes Negatve [facility] Work Phone: Urine Non-Hemolyzed Blood Negative [facility] Work Phone: Protein Test strip Ql (U)on 08-28-2021 Protein Ql (U) Negative Negative [facility] Work Phone: Squamous epithelial cells de tection in urine sediment by light microscopyon 08-28-2021 Epithelial cells.squamous LM Ql (Urine sed) 0 SEEN /hpf [facility] Work Phone: Urine blood detectionon 08-14 RBC Ql (U) Negative Negative [facility] Work Phone: RBC Ql (U) 0 SEEN /hpf [facility] Work Phone: Urine clarityon 08-28-2021 Clarity (U) Clear Clear [facility] Work Phone: Urine color determinationon 08-28-2021 Color (U) Yellow Yellow [facility] Work Phone: Urine glucose detectionon Glucose Ql (U) Normal mg/dl Normal [facility] Work Phone: Urine leukocyte esterase det ection by dipstickon 08-28-2021 Leukocyte esterase Test strip Ql (U) Negative Negative [facility] Work Phone: Urine pHon 08-28-2021 pH (U) 7.0 [pH] [facility] Work Phone: Urine sediment bacteria coun t by microscopy (number/high power field)on 08-28-2021 Bacteria LM.HPF (Urine sed) [#/Area] 0 /[HPF] None Seen [facility] Work Phone: Urine specific gravity measu rementon 08-28-2021 Specific gravity (U) [Rel density] 1.015 [facility] Work Phone: Urobilinogen Auto test strip Ql (U)on 08-28-2021 Urobilinogen Ql (U) Normal mg/dl Normal [facility] Work Phone: Office Visit: Cold symptomso n 05-07-2016 Protein mass conc Done Invalid Interpretation Code [facility] Work Phone: Protein mass conc no Invalid Interpretation Code [facility] Work Phone: Tobacco smoking status NHIS Never Invalid Interpretation Code [facility] Work Phone: Tobacco smoking status NHIS Former smoker Invalid Interpretation Code [facility] Work Phone: Vital Signs Date Time Vital Sign Value Performing Clinician Facility 10-24-2024 08:28-0400 Body height 175.26 cm [facility] 10-24-2024 08:28-0400 Body mass index (BMI) [Ratio] 24.7 kg/m2 [facility] 10-24-2024 08:28-0400 Body temperature 98 [degF] [facility] 10-24-2024 08:28-0400 Body weight 75.92 kg [facility] 10-24-2024 08:28-0400 Diastolic blood pressure 73 mm[Hg] [facility] 10-24-2024 08:28-0400 Heart rate 60 /min [facility] 10-24-2024 08:28-0400 Respiratory rate 16 /min [facility] 10-24-2024 08:28-0400 SaO2% (BldA) [Mass fraction] 95 % [facility] 10-24-2024 08:28-0400 Systolic blood pressure 122 mm[Hg] [facility] 09-13-2024 08:10-0400 Body temperature 98.01 [degF] Lilibeth Oro APRN.[employer] Work Phone: [facility] 09-13-2024 08:10-0400 Body weight 75 kg Lilibeth Oro APRN.[employer] Work Phone: [facility] 09-13-2024 08:10-0400 Diastolic blood pressure 83 mm[Hg] Lilibeth Oro APRN.[employer] Work Phone: [facility] 09-13-2024 08:10-0400 Heart rate 64 /min Lilibeth Oro APRN.[employer] Work Phone: [facility] 09-13-2024 08:10-0400 Respiratory rate 20 /min Lilibeth Oro APRN.[employer] Work Phone: [facility] 09-13-2024 08:10-0400 SaO2% (BldA) [Mass fraction] 97 % Lilibeth Oro APRN.[employer] Work Phone: [facility] 09-13-2024 08:10-0400 Systolic blood pressure 147 mm[Hg] Lilibeth Oro APRN.[employer] TE[employer] Work Phone: [facility] 12-16-2022 08:40-0400 Body height 175.26 cm [facility] 12-16-2022 08:40-0400 Body mass index (BMI) [Ratio] 24 kg/m2 [facility] 12-16-2022 08:40-0400 Body temperature 97.5 [degF] [facility] 12-16-2022 08:40-0400 Body weight 73.98 kg [facility] 12-16-2022 08:40-0400 Diastolic blood pressure 94 mm[Hg] [facility] 12-16-2022 08:40-0400 Heart rate 70 /min [facility] 12-16-2022 08:40-0400 Respiratory rate 16 /min [facility] 12-16-2022 08:40-0400 SaO2% (BldA) [Mass fraction] 98 % [facility] 12-16-2022 08:40-0400 Systolic blood pressure 128 mm[Hg] [facility] 10-18-2022 08:04-0400 Body mass index (BMI) [Ratio] 24.7 kg/m2 [facility] 10-18-2022 08:04-0400 Body temperature 97.2 [degF] [facility] 10-18-2022 08:04-0400 Body weight 75.92 kg [facility] 10-18-2022 08:04-0400 Diastolic blood pressure 77 mm[Hg] [facility] 10-18-2022 08:04-0400 Heart rate 68 /min [facility] 10-18-2022 08:04-0400 Respiratory rate 18 /min [facility] 10-18-2022 08:04-0400 SaO2% (BldA) [Mass fraction] 95 % [facility] 10-18-2022 08:04-0400 Systolic blood pressure 117 mm[Hg] [facility] 10-06-2021 08:54-0400 Body height 175.26 cm PA Ruiz Weinberg PA Work Phone: [facility] Work Phone: 10-06-2021 08:54-0400 Body mass index (BMI) [Ratio] 24.2 kg/m2 PA Ruiz Weinberg PA Work Phone: [facility] Work Phone: 10-06-2021 08:54-0400 Body temperature 97.3 [degF] PA Ruiz Weinberg PA Work Phone: [facility] Work Phone: 10-06-2021 08:54-0400 Body weight 74.38 kg PA Ruiz Weinberg PA Work Phone: [facility] Work Phone: 10-06-2021 08:54-0400 Diastolic blood pressure 74 mm[Hg] VIKAS Weinberg PA Work Phone: [facility] Work Phone: 10-06-2021 08:54-0400 Heart rate 61 /min PA Ruiz Weinberg PA Work Phone: [facility] Work Phone: 10-06-2021 08:54-0400 Respiratory rate 14 /min PA Ruiz Weinberg PA Work Phone: [facility] Work Phone: 10-06-2021 08:54-0400 SaO2% (BldA) [Mass fraction] 97 % PA Ruiz Weinberg PA Work Phone: [facility] Work Phone: 10-06-2021 08:54-0400 Systolic blood pressure 132 mm[Hg] VIKAS Weinberg PA Work Phone: [facility] Work Phone: 09-26-2021 15:37-0400 Body temperature 97.7 [degF] PA Ruiz Weinberg PA Work Phone: [facility] Work Phone: 09-26-2021 15:37-0400 Diastolic blood pressure 79 mm[Hg] PA Ruiz Weinberg PA Work Phone: [facility] Work Phone: 09-26-2021 15:37-0400 Heart rate 56 /min PA Ruiz Weinberg PA Work Phone: [facility] Work Phone: 09-26-2021 15:37-0400 Respiratory rate 16 /min PA Ruiz Weinberg PA Work Phone: [facility] Work Phone: 09-26-2021 15:37-0400 SaO2% (BldA) [Mass fraction] 98 % PA Ruiz Weinberg PA Work Phone: [facility] Work Phone: 09-26-2021 15:37-0400 Systolic blood pressure 124 mm[Hg] PA Ruiz Weinberg PA Work Phone: [facility] Work Phone: 09-25-2021 11:00-0400 Body height 175.26 cm PA Ruiz Weinberg PA Work Phone: [facility] Work Phone: 09-25-2021 11:00-0400 Body mass index (BMI) [Ratio] 28.1 kg/m2 PA Ruiz Weinberg PA Work Phone: [facility] Work Phone: 09-25-2021 11:00-0400 Body weight 86.4 kg PA Ruiz Weinberg PA Work Phone: [facility] Work Phone: 09-09-2021 04:58-0400 Diastolic blood pressure 83 mm[Hg] PA Ruiz Weinberg PA Work Phone: [facility] Work Phone: 09-09-2021 04:58-0400 Heart rate 77 /min PA Ruiz Weinberg PA Work Phone: [facility] Work Phone: 09-09-2021 04:58-0400 Respiratory rate 15 /min PA Ruiz Weinberg PA Work Phone: [facility] Work Phone: 09-09-2021 04:58-0400 SaO2% (BldA) [Mass fraction] 96 % PA Ruiz Weinberg PA Work Phone: [facility] Work Phone: 09-09-2021 04:58-0400 Systolic blood pressure 128 mm[Hg] PA Ruiz Weinberg PA Work Phone: [facility] Work Phone: 09-09-2021 04:15-0400 Body height 175.26 cm PA Ruiz Weinberg PA Work Phone: [facility] Work Phone: 09-09-2021 04:15-0400 Body mass index (BMI) [Ratio] 24.6 kg/m2 PA Ruiz Weinberg PA Work Phone: [facility] Work Phone: 09-09-2021 04:15-0400 Body temperature 97.9 [degF] PA Ruiz Weinberg PA Work Phone: [facility] Work Phone: 09-09-2021 04:15-0400 Body weight 75.6 kg PA Ruiz Weinberg PA Work Phone: [facility] Work Phone: 08-28-2021 16:01-0400 Heart rate 87 /min PA Ruiz Weinberg PA Work Phone: [facility] Work Phone: 08-28-2021 16:01-0400 Respiratory rate 17 /min PA Ruiz Weinberg PA Work Phone: [facility] Work Phone: 08-28-2021 16:01-0400 SaO2% (BldA) [Mass fraction] 98 % PA Ruiz Weinberg PA Work Phone: [facility] Work Phone: 08-28-2021 13:25-0400 Body height 175.26 cm PA Ruiz Weinberg PA Work Phone: [facility] Work Phone: 08-28-2021 13:25-0400 Body mass index (BMI) [Ratio] 24.3 kg/m2 PA Ruiz Weinberg PA Work Phone: [facility] Work Phone: 08-28-2021 13:25-0400 Body temperature 98.1 [degF] PA Ruiz Weinberg PA Work Phone: [facility] Work Phone: 08-28-2021 13:25-0400 Body weight 74.84 kg PA Ruiz Weinberg PA Work Phone: [facility] Work Phone: 08-28-2021 13:25-0400 Diastolic blood pressure 92 mm[Hg] PA Ruiz Weinberg PA Work Phone: [facility] Work Phone: 08-28-2021 13:25-0400 Systolic blood pressure 149 mm[Hg] PA Ruiz Weinberg PA Work Phone: [facility] Work Phone: 08-28-2021 12:57-0400 Body mass index (BMI) [Ratio] 25.1 kg/m2 PA Ruiz Weinberg PA Work Phone: [facility] Work Phone: 08-28-2021 12:57-0400 Body temperature 97.4 [degF] PA Ruiz Weinberg PA Work Phone: [facility] Work Phone: 08-28-2021 12:57-0400 Body weight 77.11 kg PA Ruiz Weinberg PA Work Phone: [facility] Work Phone: 08-28-2021 12:57-0400 Diastolic blood pressure 86 mm[Hg] PA Ruiz Weinberg PA Work Phone: [facility] Work Phone: 08-28-2021 12:57-0400 Heart rate 85 /min PA Ruiz Weinberg PA Work Phone: [facility] Work Phone: 08-28-2021 12:57-0400 Respiratory rate 16 /min PA Ruiz Weinberg PA Work Phone: [facility] Work Phone: 08-28-2021 12:57-0400 SaO2% (BldA) [Mass fraction] 98 % PA Ruiz Weinberg PA Work Phone: [facility] Work Phone: 08-28-2021 12:57-0400 Systolic blood pressure 132 mm[Hg] PA Ruiz Weinberg PA Work Phone: [facility] Work Phone: 03-04-2017 15:42-0400 Body Temperature 98.6 [degF] Ruiz BEAN [facility] Work Phone: 05-07-2016 09:01-0500 BMI (Body Mass Index) 26.86 kg/m2 Ruiz [facility] Work Phone: 05-07-2016 09:01-0500 BP Diastolic 112 mm[Hg] Ruiz BEAN [facility] Work Phone: 05-07-2016 09:01-0500 BP Systolic 150 mm[Hg] Ruiz BEAN [facility] Work Phone: 05-07-2016 09:01-0500 Height 177.8 cm Ruiz BEAN [facility] Work Phone: 05-07-2016 09:01-0500 Pulse (Heart Rate) 76 /min Ruiz [facility] Work Phone: 05-07-2016 09:01-0500 Respiratory Rate 18 /min Ruiz BEAN [facility] Work Phone: 05-07-2016 09:01-0500 Weight 84.91 kg Ruiz BEAN [facility] Work Phone: Encounters Encounter Date Encounter Type Care Provider Facility Start: 10-24-2024 End: 10-24-2024 ambulatory [facility] Work Phone: Start: 10-24-2024 End: 10-24-[address] Laurie Plummer MD -[facility] Work Phone: Start: 09-13-2024 End: 09-13-2024 Patient encounter procedure Lilibeth Oro APRN.[employer] Work Phone: [facility] Comment on above: Insect bite of right thigh, initial encounter (Primary Dx) Start: 09-13-2024 ambulatory LAURIE PLUMMER Facili ty:[facility] Start: 10-24-2023 End: 10-24-2023 ambulatory Laurie Plummer Facility:[facility] Start: 10-24-2023 End: 10-24-2023 ambulatory Laurie Plummer Facility:[facility] Start: 12-16-2022 End: 12-16-2022 Emergency department patient visit [facility] Work Phone: Start: 10-18-2022 End: 10-18-2022 Patient encounter procedure [facility] Work Phone: Start: 10-05-2022 End: 10-05-2022 Patient encounter procedure [facility] Work Phone: Start: 09-01-2022 End: 09-01-2022 ambulatory [facility] Work Phone: Start: 09-01-2022 End: 09-01-2022 Patient encounter procedure [facility], Specimen Start: 08-09-2022 End: 08-09-2022 ambulatory [facility] Work Phone: Start: 08-09-2022 End: 08-09-2022 Patient encounter procedure [facility] Start: 10-06-2021 End: 10-06-2021 [facility] Start: 10-06-2021 End: 10-06-2021 Patient encounter procedure VIKAS BEAN Work Phone: [facility] Start: 09-25-2021 End: 09-26-2021 Evaluation and management of inpatient [facility] Start: 09-09-2021 End: 09-09-2021 Emergency department [facility] Start: 08-28-2021 End: 08-28-2021 Patient encounter procedure [facility]AS [facility] Start: 08-28-2021 End: 08-28-2021 Emergency department patient [facility] Start: 08-28-2021 End: 08-28-2021 Patient encounter [facility] Procedures Date Procedure Procedure Detail Performing Clinician Start: 09-01-[facility]22 [facility] Start: 10-06-2021 Urine culture VIKAS dee PA Work Phone: Start: 09-25-2021 Cysto,TUR,Prostate,O lymp us (Not Applicable) VIKSA BEAN Work Phone: Start: 08-28-2021 Urine culture VIKAS dee PA Work Phone: Start: 03-04-2017 Influenza vaccination Flu vaccine Karen BEAN History of operative procedure on knee History of partial knee replacement VIKAS BEAN Work Phone: Comment on above: 2011, LEFT KNEE History of transuret hral prostatectomy Status post transurethral resection of prostate VIKAS BEAN Work Phone: Urine culture Urine culture Plan of Treatment Date Care Activity Detail Author Start: 04-22-2032 Urine microalbumin profile DTaP,Tdap,Td Vaccine (3 - Td or Tdap) [facility] Start: 08-14-2024 Covid-19 Vaccine () Covid-19 Vaccine () [facility] Start: 05-16-2024 Advance Directive Discussion Advance Directive Discussion [facility] Start: 09-25-2021 Anesthesia transurethral resection of prostate ANESTH REMOVAL OF PROSTATE [facility] Work Phone: Start: 09-25-2021 Trurl electrosurg rescj prostate bleed complete PROSTATECTOMY (TURP) [facility] Work Phone: Start: 08-28-2021 Bacteria identified in Urine by Culture Urine Culture [facility] Work Phone: Start: 2018 RSV Vaccine (1 - 1-dose 75+ series) RSV Vaccine (1 - 1-dose 75+ series) [facility] Start: 04-03-2015 Diabetes Screening Diabetes Screening [facility] Start: 1963 Anxiety Screening Anxiety Screening [facility] Start: 1963 Depression Screening Depression Screening [facility] CBC W Auto Different ial panel - Blood [facility] Cobalamin (Vitamin B 12) [Mass/volume] in Serum or Plasma [facility] Comprehensive metabo lic 1999 panel - Serum or Plasma [facility] Lipid 1996 panel - S stephanie or Plasma [facility] Magnesium measurement [facility] Patient Education [facility] Work Phone: Patient referral [facility] Work Phone: Prostate specific an tigen measurement [facility] Thyroid stimulating hormone measurement [facility] Vitamin D, 25-hydrox y measurement [facility] Work Phone: Immunizations Immunization Date Immunization Notes Care Provider Linda crawley 10-20-2017 Seasonal trivalent influenza vaccine, adjuvanted, preservative free Ruiz BEAN [facility] Work Phone: 04-25-2012 pneumococcal polysaccharide vaccine, 23 valent Lilibeth Oro APRN.[employer] Work Phone: [facility] 03-28-2012 tetanus toxoid, redu daniel diphtheria toxoid, and acellular pertussis vaccine, adsorbed Lilibethbritany Oro [employer] MARKER MACHINE.[employer] TE[employer] Work Phone: [facility] 03-13-2012 influenza virus vacc ine, unspecified formulation Lilibeth Oro [employer] MACHINE.[employer] Work Phone: [facility] 03-09-2011 influenza virus vacc ine, unspecified formulation Lilibeth Oro APRN.[employer] TESTER Work Phone: [facility] 05-16-2009 pneumococcal polysaccharide vaccine, 23 valent Lilibeth Oro APRN.[employer] TESTER Work Phone: [facility] Payers Date Payer Category Payer Unknown [id number] 2022 Self-pay [id number] 2022 Unknown [id number] 2021 Private Health Insurance [facility] [address] [id number] 2021 Unknown [id number] 2008 Medicare MEDICARE [id number] 2008 Medicare [id number] Private Health Insurance [id number] Unknown [id number] Unknown [id number] Unknown [id number] Social History Date Type Detail Facility Start: 08-28-2021 End: 12-16-2022 Tobacco smoking status COIS Unknown if ever smoked [facility] Start: 1945 Sex Assigned At Male [facility] Start: 09-13-2024 [facility] Start: 04-03-1961 End: 04-03-1970 History of tobacco use Current smoker [facility] Start: 04-03-1961 End: 04-03-1970 History of tobacco use Cigarette Smoker [facility] Start: 09-13-2024 Cigarettes smoked current (pack per day) - Reported 2 [facility] Start: 09-13-2024 Tobacco use and exposure Smokeless tobacco non-user [facility] Start: 09-13-2024 Alcoholic beverage intake Current drinker of alcohol (finding) [facility] Start: 09-13-2024 Tobacco use panel [facility] Start: 1945 Sex assigned at Not on file [facility] Start: 12-16-2022 [facility] Never [facility] (finding[facility] Medical Equipment Procedure Code Equipment Code Equipment Origin al Text Equipment Identifier Dates Chance Bn Cblt G-Hv 40gm Hvisc - [id number] Start: 04-24-2012 [place] Twin Peg Cemented Femoral Med - [id number] Start: 04-24-2012 Bear Vngrd M Oxf d Cocr Mlbdn - [id number] Start: 04-24-2012 Bear 4mm Oxfd Ar cm Lt Eryn Tib - [id number] Start: 04-24-2012 Functional Status Date Assessment Result Facility 09-26-2021 Functional status Chair [facility] Work Phone: Mental Status Date Assessment Result Facility 09-26-2021 Cognitive function Level Of Cons ciousness Awake;Alert;Appropriate;Follow s Commands [facility] Work Phone: 09-25-2021 Cognitive function Voice/Name [facility] Work Phone: Progress note 09-13-2024 Note Date & Type Note Facility 09-13-2024 Note HNO ID: [id number] Author: LILIEBTH ORO APRN.METALLURGICAL TESTER Service: ? Author Type: Nurse Practitioner Type: Progress Notes Filed: 09/13/2024 08:19 Note Text: [facility] Subjective Hong Anders is a 79 year old male. Patient presents with: Trauma: Upper R thigh area, stung by a bug x 1 day, states there is redness swelling and stinging in area Patient came in with complaints of bug bite on right thigh. Patient says something black with wings called up his pants and bit him. Patient says it is itchy. Patient is currently on doxycycline for different issue. Denies any other symptoms The history is provided by the patient. No senior clinical project manager was used. Trauma Review of Systems Constitutional: Negative. HENT: Negative. Objective BP 147/83 Pulse 64 Temp 36.7 ?C (98 ?F) Resp 20 Wt 75 kg (165 lb 5.5 oz) SpO2 97% Physical Exam Constitutional: Appearance: Normal appearance. Pulmonary: Effort: Pulmonary effort is normal. Musculoskeletal: Legs: Comments: Purple area velasquez puncture wound from insect bite. Red area marked erythema around puncture wound. It is all blanchable. No signs of infection. Circulation and sensation intact. Segment Assembler was in room. Neurological: Mental Status: He is alert. PAST MEDICAL HISTORY Diagnosis Date HTN (hypertension) PAST SURGICAL HISTORY Procedure Laterality Date TONSILLECTOMY HX ALLERGIES Lisinopril, Losartan, Percocet [Oxycodone-Acetaminophen], Vancomycin, and Vicodin [Hydrocodone-Acetaminophen] MEDICATIONS doxycycline hyclate (VIBRAMYCIN) 100 mg capsule Take 1 capsule by mouth every 12 hours. potassium chloride ER (KLOR-CON) 20 mEq tablet Take 1 tablet by mouth three times a day. atenolol 100 mg tablet Take 1 tablet by mouth once daily. cetirizine (ZYRTEC) 10 mg tablet Take 1 tablet by mouth once daily for 10 days. triamcinolone (KENALOG) 0.025 % cream Apply to affected area two times a day for 7 days. amoxicillin 500 mg capsule Take 4 capsules by mouth as directed. Take one hour prior to dental work (Patient not taking: Reported on 09/13/2024) aspirin 325 mg tablet Take 1 tablet by mouth once daily. (Patient not taking: Reported on 09/13/2024) hydrochlorothiazide 25 mg tablet Take 1 tablet by mouth once daily. (Patient not taking: Reported on 09/13/2024) felodipine (PLENDIL) 10 mg 24 hr tablet Take 1 tablet by mouth once daily. EPINEPHrine 0.3 mg/0.3 mL PnIj Inject 0.3 mL intramuscularly as directed. (Patient not taking: Reported on 09/13/2024) FAMILY HISTORY Problem Relation Age of Onset other (HTN [Other]) Mother other (HTN [Other]) Son Ischemic Heart Disease Brother other (pernicious anemia [Other]) Paternal Grandfather Social History Tobacco Use Smoking status: Former Current packs/day: 0.00 Average packs/day: 2.0 packs/day for 9.0 years (18.0 ttl pk-yrs) Types: Cigarettes Start date: 04/03/1961 Quit date: 04/03/1970 Years since quittin.4 Smokeless tobacco: Never Substance Use Topics Alcohol use: Yes Alcohol/week: 4.0 standard drinks of alcohol Types: 4 Cans of Beer (12oz) per week Drug use: No Comment: denies IVDU {ASSESSMENT/PLAN: 1. Insect bite of right thigh, initial encounter - ICD9: 916.4, E906.4, ICD10: S70.361A, W57.XXXA - CETIRIZINE 10 MG TABLET - TRIAMCINOLONE ACETONIDE 0.025 % TOPICAL CREAM Patient educated about proper use of medication and supportive therapies. Patient educated about red flag symptoms to watch for. Patient will follow-up if signs and symptoms seem to be getting worse not better. Lilibeth Oro APRN.NAVEEN History and Record Review External record(s) reviewed: no prior records. Procedures [facility] History of Present illness Narrative 09-13-2024 Lilibeth Oro APRN.NAVEEN - 09/13/2024 8:16 AM EDT Note Date & Type Note Facility 09-13-2024 History of Presen t illness Narrative Images from the original note were not included. [facility] Subjective Hong Anders is a 79 year old male. Patient presents with: Trauma: Upper R thigh area, stung by a bug x 1 day, states there is redness swelling and stinging in area Patient came in with complaints of bug bite on right thigh. Patient says something black with wings called up his pants and bit him. Patient says it is itchy. Patient is currently on doxycycline for different issue. Denies any other symptoms The history is provided by the patient. No senior clinical project manager was used. Trauma Review of Systems Constitutional: Negative. HENT: Negative. Objective BP 147/83 Pulse 64 Temp 36.7 C (98 F) Resp 20 Wt 75 kg (165 lb 5.5 oz) SpO2 97% Physical Exam Constitutional: Appearance: Normal appearance. Pulmonary: Effort: Pulmonary effort is normal. Musculoskeletal: Legs: Comments: Purple area velasquez puncture wound from insect bite. Red area marked erythema around puncture wound. It is all blanchable. No signs of infection. Circulation and sensation intact. Segment Assembler was in room. Neurological: Mental Status: He is alert. PAST MEDICAL HISTORY Diagnosis Date HTN (hypertension) PAST SURGICAL HISTORY Procedure Laterality Date TONSILLECTOMY HX ALLERGIES Lisinopril, Losartan, Percocet [Oxycodone-Acetaminophen], Vancomycin, and Vicodin [Hydrocodone-Acetaminophen] MEDICATIONS doxycycline hyclate (VIBRAMYCIN) 100 mg capsule Take 1 capsule by mouth every 12 hours. potassium chloride ER (KLOR-CON) 20 mEq tablet Take 1 tablet by mouth three times a day. atenolol 100 mg tablet Take 1 tablet by mouth once daily. cetirizine (ZYRTEC) 10 mg tablet Take 1 tablet by mouth once daily for 10 days. triamcinolone (KENALOG) 0.025 % cream Apply to affected area two times a day for 7 days. amoxicillin 500 mg capsule Take 4 capsules by mouth as directed. Take one hour prior to dental work (Patient not taking: Reported on 09/13/2024) aspirin 325 mg tablet Take 1 tablet by mouth once daily. (Patient not taking: Reported on 09/13/2024) hydrochlorothiazide 25 mg tablet Take 1 tablet by mouth once daily. (Patient not taking: Reported on 09/13/2024) felodipine (PLENDIL) 10 mg 24 hr tablet Take 1 tablet by mouth once daily. EPINEPHrine 0.3 mg/0.3 mL PnIj Inject 0.3 mL intramuscularly as directed. (Patient not taking: Reported on 09/13/2024) FAMILY HISTORY Problem Relation Age of Onset other (HTN [Other]) Mother other (HTN [Other]) Son Ischemic Heart Disease Brother other (pernicious anemia [Other]) Paternal Grandfather Social History Tobacco Use Smoking status: Former Current packs/day: 0.00 Average packs/day: 2.0 packs/day for 9.0 years (18.0 ttl pk-yrs) Types: Cigarettes Start date: 04/03/1961 Quit date: 04/03/1970 Years since quittin.4 Smokeless tobacco: Never Substance Use Topics Alcohol use: Yes Alcohol/week: 4.0 standard drinks of alcohol Types: 4 Cans of Beer (12oz) per week Drug use: No Comment: denies IVDU {ASSESSMENT/PLAN: 1. Insect bite of right thigh, initial encounter - ICD9: 916.4, E906.4, ICD10: S70.361A, W57.XXXA - CETIRIZINE 10 MG TABLET - TRIAMCINOLONE ACETONIDE 0.025 % TOPICAL CREAM Patient educated about proper use of medication and supportive therapies. Patient educated about red flag symptoms to watch for. Patient will follow-up if signs and symptoms seem to be getting worse not better. Lilibeth Oro APRN.NAVEEN History and Record Review External record(s) reviewed: no prior records. Procedures documented in this encounter [facility] Discharge summary Note Date & Type Note Facility Discharge summary Note Date/Time December 16, 2022 9:07am [facility] Medical Records Department [address] [place] [address] Emergency Department Summary 12/16/22 MR#: [id number] Acct: [id number] Name: HONG ANDERS Rep #:[id number] : 1945 77 From: Bigg Johnson MD PCP: [facility] Status:PRE ER Location: ED HPI History of Present Illness Chief Complaint: GI Bleed Detail of Chief Complaint: Bright red blood per rectum Informant: patient Onset/Context/Timing Onset: Today and Yesterday Context: Sudden Onset Timing: Intermittent Quality: Blood with bowel movement and noted small amount of blood lysate on underwe Current Severity: Moderate Maximum Severity: Moderate Worsened by: Bowel movement Relieved by: Not applicable Associated Symptoms Associated Symptoms: None Narrative Narrative: Patient is a 77-year-old male presents with bright red blood per rectum yesterday x1 and x2 today. He is noted with bowel movement and noted blood in his underwear after bowel movement. He denies orthostatic symptoms. He is not on an anticoagulant. He denies cardiac or respiratory symptoms. He has a remote history of hemorrhoids. He had a polypectomy performed by Dr. Ariel Horn 1 year ago. Prior similar symptoms: Yes (Hemorrhoids) Recent Illness/Hospitalization: No PFSH PFSH Medical History Alcohol use Arthritis Easy bruising Enlarged prostate Hemorrhoids History of IBS History of stress test HTN (hypertension) Incontinence Leg cramps Non-smoker Wears glasses Wears hearing aid in both ears Wears partial dentures Home Medications atenolol 100 mg tablet 100 mg PO DAILY #90 tabs 10/18/22 [Rx Last Taken Unknown] felodipine 10 mg tablet,extended release 24 hr 10 mg PO DAILY #90 tabs 10/18/22 [Rx Last Taken Unknown] potassium chloride 20 mEq tablet,extended release(part/cryst) 20 meq PO BID #180tabs 10/18/22 [Rx Last Taken Unknown] Allergy/AdvReac Type Severity Reaction Status Date / Time lisinopril Allergy unknown Verified 12/16/22 08:40 losartan Allergy unknown Verified 12/16/22 08:40 Family History Mother Arthritis Hypertension Father Stomach cancer Brother Heart disease Surgical History History of partial knee replacement History of tonsillectomy and adenoidectomy History of transurethral resection of prostate Hx of bilateral cataract extraction Social History Smoking Status: Never smoker alcohol intake: current alcohol intake frequency: 0-2 drinks per day Alcohol type: beer substance use type: does not use what type of physical activity do you participate in: walking frequency: 3-4 times per week duration: 15-30 minutes/day ROS ROS ED Constitutional Constitutional ED: Denies chills, fever(s), subjective, sweats or weight loss Cardiovascular Cardiovascular: Denies chest pain or palpitations Respiratory/Chest Respiratory/Chest: Denies dyspnea or dyspnea on exertion Gastrointestinal Gastrointestinal: Reports other Details: Hematochezia ; Denies abdominal pain, constipation, diarrhea, melena, nausea or vomiting Genitourinary Genitourinary ED: Denies hematuria or urinary frequency Hematologic/Lymphatic Hematologic/Lymphatic: Reports systems reviewed and no addt'l complaints, exceptas documented EXAM Physical Exam Const Vital Signs: 12/16/22 08:40 Temperature 97.5 F L Temperature Source Temporal Pulse Rate 70 Respiratory Rate 16 Blood Pressure 128/94 H Blood Pressure Mean 105 Pulse Ox 98 Positive well nourished and well developed General Appearance ED: well developed and NAD; Negative for pallor HEENT Reports moist mucous membranes HEENT Narrative: Head is atraumatic normocephalic. Ears normal. Eyes PERRL and EOMs intact bilaterally General Eye ED: Negative for pale conjunctiva or scleral icterus Neck no lymphadenopathy, supple and no JVD Resp normal respiratory effort and clear to auscultation bilaterally Cardio regular rate, S2 normal heart sound and no murmurs GI normal to inspection, nondistended, normoactive bowel sounds, non-tender, non-distended and no masses; Negative for hepatosplenomegaly GI Narrative: And has brown stool. There is no obvious bright red blood noted at this time. Rectal Exam: normal sphincter tone and prostate normal Back/Spine no CVA tenderness Extremity normal to inspection Neuro oriented x3 and CN's II-XII intact bilaterally Sensorium / Orientation: alert Psych Mood & Affect: anxious Skin no rashes or lesions noted and no wounds General Skin Exam: Negative for jaundice or pallor MDM MDM MDM Narrative Medical decision making narrative: SPECT patient has hemorrhoidal bleeding. We will perform a anoscopy. Based on endoscopy findings patient had bright red blood per rectum due to hemorrhoids noted at 5:00 lithotomy position. Patient was informed of findings and discharged home with appropriate home-going instructions Procedures Other Procedures Procedure(s): Patient was in left lateral decubitus position. Evidence of priorhemorrhoids noted. Digital exam was unremarkable and documented under the GI section of the EMR. Anoscopy was performed. Stool is noted to be brown. Thereis no blood noted above the scope. At 5:00 there is a hemorrhoid which recentlybled. There is a clot noted. There is no active bleeding. The anal/rectal mucosa appears normal. Discharge Plan Triage Chief Complaint: GI Bleed ED Provider: Bigg Johnson Dx/Rx/DC Orders Clinical Impression: Bleeding external hemorrhoids Instructions: ED Hemorrhoids Prescriptions: No Action atenolol 100 mg tablet 100 mg PO DAILY Qty: 90 3RF felodipine 10 mg tablet extended release 24 hr 10 mg PO DAILY Qty: 90 3RF potassium chloride 20 mEq tablet,ER particles/crystals 20 meq PO BID Qty: 180 3RF [facility]errals[facility] [Primary Care Provider] - As Needed Disposition Disposition: Home, Self Care What to do if you have Problems For any increased pain, shortness of breath, bleeding, nausea or vomiting, chestpain, or any unexpected problems, contact your Primary Care Provider. Call [facility] ([phone]) or report to the closest Emergency Room. Call 911 if necessary. 12/16/22 0907 <Electronically signed by Bigg Johnson MD> Cosigner Signature (if applicable): CC: [facility] ~ Signed [facility] Work Phone: Evaluation note Note Date & Type Note Facility Evaluation note Diagnosis Onset Date Dysuria acute Incontinence acute [facility] Work Phone: Evaluation note Note Date & Type Note Facility Evaluation note Diagnosis Onset Date Dysuria acute Incontinence acute Arthritis acute History of partial knee replacement acute Status post transurethral re section of prostate acute Wears hearing aid in both ears acute HTN (hypertension) [facility] Work Phone: Evaluation note Note Date & Type Note Facility Evaluation note No assessment information availa ble [facility] Work Phone: Evaluation note Note Date & Type Note Facility Evaluation note Diagnosis Onset Date Arthritis acute Dysuria acute History of partial knee replacement acute Status post transurethral re section of prostate acute Wears hearing aid in both ears acute HTN (hypertension) [facility] Work Phone: Evaluation note Note Date & Type Note Facility Evaluation note Diagnosis Insect bite of right thigh, initial encounter- Primary documented in this encounter [facility] Reason for referral (narrative) Note Date & Type Note Facility Reason for referral (narrative) No reason for referral information available [facility] Work Phone: Chief Complaint and Reason for Visit Chief Complaint UTI? ABD PAIN Reason for Visit Dysuria Incontinence Chief Complaint UTI? ABD PAIN unable to urinate Reason for Visit Dysuria Incontinence Chief Complaint UTI? 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 CARE - NPP SENT Reason for Visit Dysuria Incontinence Arthritis History of partial knee replacement Status post transurethral resection of prostate Wears hearing aid in both ears HTN (hypertension) Chief Complaint EORDER Annual Physical GI BLEED, ABD DISCOMFORT Reason for Visit Arthritis Dysuria History of partial knee replacement Status post transurethral resection of prostate Wears hearing aid in both ears HTN (hypertension) Chief Complaint Admit Date Annual/Physical October 24, 2024 8:20 am Advance Directives Advance Directive Response Recorded Date/ Time Living Will No August 28, 2021 2:14pm Power of Mushroom Laborer No August 28 2:14pm Advance Directive Response Recorded Date/ Time Living Will No September 09, 2021 4:17am Power of Mushroom Laborer No September 09 4:17am Advance Directive Response Recorded Date/ Time Living Will No September 25, 2021 1 1:00am Power of Mushroom Laborer No September 25, 2021 11:00am Advance Directive Response Recorded Date/ Time Living Will No December 16, 2022 9:39am Power of Mushroom Laborer No December 16 9:39am Documents on File Type Date Recorded 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 Advance Directive(s) 05/04/2012 11:04 PM Family History Relationship Condition Age at Onset Recorded Date/T carine mother Arthritis Unknown Hypertension Unknown father Malignant neoplasm of stomach Unknown brother Cardiac disease Unknown Summary Purpose Additional Source Comments Goals (unrecognized section and content) Goals may be documented in a n alternate sectionGoals may be documented in an alternate sectionGoals may be documented in an alternate sectionGoals may be documented in an alternate sectionGoals may be documented in an alternate sectionGoals may be documented in an alternate sectionGoals may be documented in an alternate sectionGoals may be documented in an alternate section Care Teams (unrecognized sec tion and content) Team Status: Active Member Role Status Dates [facility] Family Provider Active [facility] Primary Care Provider Active Team Status: Inactive Member Role Status Dates [facility] Primary Care Provider Active Dr. Marvin Ribera MD Attending Provider, Referr ing Provider Active Team Status: Inactive Member Role Status Dates [facility] Primary Care Provider Active Dr. Marvin Ribera MD Attending Provider Active Team Status: Inactive Member Role Status Dates [facility] Primary Care Provider Active Dr. Laurie Plummer MD Attending Provider Active Team Status: Inactive Member Role Status Dates [facility] Primary Care Provider Active Dr. Laurie Plummer MD Attending Provider, Referring Provider Active Team Status: Inactive Member Role Status Dates [facility] Primary Care Provider Active Dr. Bigg Johnson MD Emergency Provider Active [employer] Operator Relationship Specialty Start Date End Date Laurie Plummer MD [address] [facility] [address] [place] [address] PCP - General Internal Medicine 09/13/24 Team Status: Inactive Member Role Status Dates [facility] Primary Care Provider Active Start: October 24, 2024 End: October 24, 2024 Dr. Laurie Plummer MD Attending Provider Active Start: October 24, 2024 End: October 24, 2024 (unrecognized sect ion and content) No Status Records FoundNo Status Records Found INFORMATION SOURCE (unrecogn ized section and content) DATE CREATED AUTHOR 11/05/2023 [facility] DATE CREATED AUTHOR AUTHOR'S WILFRID GLASGOW 09/18/2024 [facility] Source Comments (unrecognize d section and content) In the event this informatio n is protected by the Federal Confidentiality of Alcohol and Drug Abuse Patient Records regulations: The Federal rules restrict any use of the information to criminally investigate or prosecute any alcohol or drug abuse patient.[facility] Reason for Visit (unrecogniz ed section and content) Reason Comments Trauma Upper R thigh area, stung by a bug x 1 day, states there is redness swelling and stinging in area FOR RECORDS PERTAINING TO PATIENTS WHO ARE OR HAVE BEEN ENROLLED IN A CHEMICAL DEPENDENCY/SUBSTANCEABUSE PROGRAM, SOME INFORMATION MAY BE OMITTED. This clinical summary was aggregated from multiple sources. Caution should be exercised in using it in the provision of clinical care. This summary normalizes information from multiple sources, and as a consequence, information in this document may materially change the coding, format and clinical context of patient data. In addition, data may be omitted in some cases. CLINICAL DECISIONS SHOULD BE BASED ON THE PRIMARY CLINICAL RECORDS. [facility]. provides no warranty or guarantee of the accuracy or completeness of information in this document.
== END | disposition home or self-care (01) ==
LOC: LAB 09:33
PROVIDERS: Referring Provider Internal Medicine; Visit Provider Internal Medicine
DX: I10 Essential (primary) hypertension (principal); Z90.79 Acquired absence of other genital organ(s); M19.90 Unspecified osteoarthritis, unspecified site; Z13.220 Encounter for screening for lipoid disorders; E55.9 Vitamin D deficiency, unspecified; E53.8 Deficiency of other specified B group vitamins; Z12.5 Encounter for screening for malignant neoplasm of prostate
CPT/HCPCS: 36415; 80053; 80061; 82306; 82607; 83735; 84153; 84443; 85025; G0103